=== PATIENT | female | born 1945 | race Caucasian/White ===

== ENCOUNTER → 2016-06-24 | Outpatient (CLI) | payer BC ==
[~2016-06-24] MED LIST: ASPI81TA28 PO; CRANBERRY TAB; CRS/10 PO; FLNIN NAE; FLUOCINONIDE TOP; LIDO5DIS10 TD; LISI40TA PO; MONT1TAB3 PO; NAPR500T3 PO; OXYC-57 PO; PANT1TAB48 PO; SULF-183 PO; SYMIN/8045 INH
--- NOTE | 2016-06-24 13:36 | DIAGNOSTIC IMAGING REPORT ---
LEFT HIP UNILATERAL 2 VIEWS CLINICAL HISTORY: Left hip pain COMPARISON: None. DISCUSSION: The bones are mildly osteopenic. No fractures are visualized. There are no erosive or destructive changes. Vascular calcifications are visualized. The joint space appears well-preserved for age. IMPRESSION: No fractures or subluxations identified. The joint space appears well-preserved for age. Electronically signed by: Sergio Harvey M.D. 06/24/2016 1:34 PM Dictated Date/Time: 06/24/2016 1:33 PM
--- NOTE | 2016-06-24 13:40 | DIAGNOSTIC IMAGING REPORT ---
LUMBAR SPINE 5 VIEWS CLINICAL HISTORY: Chronic low back pain. FINDINGS: 5 views of lumbar spine are obtained. No prior studies are available for comparison at the time of dictation. The skeletal structures are osteopenic. There is no radiographic evidence of fracture or malalignment. Vertebral body height and alignment are maintained throughout the lumbar spine. There is moderate lumbar dextrocurvature centered at L2-L3. Anterior and lateral marginal osteophytes are seen throughout. The transverse and spinous processes appear intact. There is no evidence of spondylolysis. There is advanced degenerative disc space narrowing with associated endplate sclerosis at L2-L3. Moderate disc space narrowing is seen at L1-L2 and L3-L4. Mild facet arthropathy is noted in the lower lumbar region. The bony pelvis appears intact as imaged. Mild sclerotic change is seen in the sacroiliac joints. Advanced atherosclerotic calcification is present in the abdominal aorta. There is a nonobstructed abdominal bowel gas pattern. Calcified phleboliths are observed in the pelvis. IMPRESSION: 1. There is no acute bony abnormality seen involving the lumbosacral spine. 2. Osteopenia with lumbosacral spondylosis and scoliosis as above. Electronically signed by: Anil Aguilar M.D. 06/24/2016 1:39 PM Dictated Date/Time: 06/24/2016 1:36 PM
--- NOTE | 2016-06-24 13:52 | DIAGNOSTIC IMAGING REPORT ---
RIGHT HIP 2 VIEWS CLINICAL HISTORY: Right hip pain. FINDINGS: AP and frog-leg views of the right hip are obtained. No prior studies are available for comparison at the time of dictation. The skeletal structures are osteopenic. No fracture is seen in the right hip or the imaged right hemipelvis. Minimal degenerative joint space narrowing is seen in the right hip. The right sacroiliac joint is normal as visualized. The overlying soft tissues are within normal limits. Calcified gluteal granulomas are noted in the right. Phleboliths are seen in the right hemipelvis. There is atherosclerotic calcification of the right femoral artery. IMPRESSION: Osteopenia with minimal degenerative change as above. No acute bony abnormality is seen in the right hip. Electronically signed by: Anil Aguilar M.D. 06/24/2016 1:50 PM Dictated Date/Time: 06/24/2016 1:49 PM
== END | disposition home or self-care (01) ==
LOC: C.RAD 12:28
PROVIDERS: ATTEND Family Medicine
DX: M54.5 Low back pain (principal); M25.551 Pain in right hip; M25.552 Pain in left hip; M85.89 Other specified disorders of bone density and structure, multiple sites; M47.817 Spondylosis without myelopathy or radiculopathy, lumbosacral region; M41.9 Scoliosis, unspecified

== ENCOUNTER → 2016-11-30 | Outpatient (CLI) | payer BC ==
--- NOTE | 2016-11-30 17:31 | DIAGNOSTIC IMAGING REPORT ---
CHEST 2 VIEWS ROUTINE CLINICAL HISTORY: R05 PNEUMONIA. COMPARISON STUDY: 10/07/2012 FINDINGS: The heart is the upper limits of normal in size. There is a scoliosis. There are right lower lobe airspace opacities consistent with a pneumonia. There is no significant pleural fluid.[ Films subsequent to treatment are recommended in follow-up. IMPRESSION: Right lower lobe airspace opacities consistent with pneumonia. Films subsequent to treatment are recommended in follow-up. Electronically signed by: Sergio Harvey M.D. 11/30/2016 5:30 PM Dictated Date/Time: 11/30/2016 5:28 PM
== END | disposition home or self-care (01) ==
LOC: C.RAD 16:39
PROVIDERS: ATTEND Nurse Practitioner Adult Health
DX: R05 Cough (principal); R91.8 Other nonspecific abnormal finding of lung field

== ENCOUNTER → 2017-01-07 | Outpatient (CLI) | payer BC ==
--- NOTE | 2017-01-07 11:12 | DIAGNOSTIC IMAGING REPORT ---
TWO VIEW CHEST CLINICAL HISTORY: Follow-up pneumonia. FINDINGS: PA and lateral chest radiographs are compared to study dated 11/30/2016. The heart is mildly enlarged and there is atherosclerotic calcification of the thoracic aorta. The pulmonary vasculature is noncongested. Chronic interstitial thickening is similar to previous. There is no airspace consolidation or pleural effusion. There is no pneumothorax. The skeletal structures are osteopenic. Degenerative change and scoliosis are noted in the thoracic spine. IMPRESSION: 1. There is no airspace consolidation or pleural effusion. Right lower lobe consolidation has resolved as compared to 11/30/2016. 2. Mild cardiomegaly without radiographic evidence of congestive failure. Electronically signed by: Anil Aguilar M.D. 01/07/2017 11:10 AM Dictated Date/Time: 01/07/2017 11:06 AM
[2017-01-07 13:22] LABS: ESTIMATED AVERAGE GLUCOSE 137 mg/dl; HA1C FLAG Normal (Normal)
[2017-01-07 14:03] LABS: BLOOD UREA NITROGEN 17 mg/dl (7-18); CALCIUM 10.7 mg/dl (8.5-10.1); CARBON DIOXIDE 28 mmol/L (21-32); CHLORIDE 105 mmol/L (98-107); CREATININE 0.65 mg/dl (0.60-1.20); GLUCOSE 119 mg/dl (70-99); POTASSIUM 3.7 mmol/L (3.5-5.1); SODIUM 142 mmol/L (136-145)
== END | disposition home or self-care (01) ==
LOC: C.RAD 10:47
PROVIDERS: ATTEND Nurse Practitioner Adult Health
DX: I10 Essential (primary) hypertension (principal); R73.9 Hyperglycemia, unspecified; J18.9 Pneumonia, unspecified organism; I51.7 Cardiomegaly

== ENCOUNTER 2023-11-04 09:29 | Inpatient (IN) ==
--- NOTE | 2023-11-04 10:18 | Emergency Department Note ---
History of Present Illness General Chief complaint: Dizziness Stated complaint: DIZZIESS,NAUSEA Time Seen by Provider: 11/04/23 10:00 Source: patient, family ( who is at the bedside), RN notes reviewed and old records reviewed (08/23/23-primary care office visit for primary care issues) Mode of arrival: ambulatory Limitations: no limitations History of Present Illness This patient is a 77-year-old female comes in after feeling intermittently dizzy for the last couple weeks. She says it is better when she sits and rests when she moves her head she feels like she is spinning. She feels when she has a spell she gets numb and tingling in her arms bilaterally. No chest pain. no cough or fever .No headache. she feels nauseous at times .no blood or melena stool. no abdominal pain no urinary symptoms. She does take a baby aspirin but no other blood thinners. No fall or trauma. She also says her left leg has been swollen and tender recently Home Medications Medication Instructions Recorded Confirmed Type albuterol sulfate 90 mcg/actuation 1 inh inhalation Q6H PRN shortness 10/26/22 11/04/23 Rx aerosol inhaler (Ventolin HFA) of breath or wheezing #6.7 grams ondansetron HCl 4 mg tablet 4 mg PO BID PRN nausea and 02/19/23 11/04/23 Rx vomiting #20 tabs lisinopril 40 mg tablet 40 mg PO DAILY #90 tabs 03/04/23 11/04/23 Rx montelukast 10 mg tablet 10 mg PO DAILY #90 tabs 03/04/23 11/04/23 Rx rosuvastatin 20 mg tablet (Crestor) 20 mg PO DAILY #90 tabs 04/05/23 11/04/23 Rx amlodipine 10 mg tablet 10 mg PO DAILY #30 tabs 06/24/23 11/04/23 Rx fluticasone fur. 100 mcg-umeclid 1 inh inhalation Q24H #28 ea 08/23/23 11/04/23 Rx 62.5 mcg-vilant 25 mcg inhalat.powder (Trelegy Ellipta) oxycodone-acetaminophen 5 mg-325 1 - 2 tab PO Q4H PRN pain 25 days 11/03/23 11/04/23 Rx mg tablet #200 tabs alendronate 70 mg tablet 70 mg PO WK 11/04/23 11/04/23 History aspirin 81 mg tablet,delayed 81 mg PO DAILY 11/04/23 11/04/23 History release calcium carbonate 600 mg-vitamin 1 cap PO DAILY 11/04/23 11/04/23 History D3 12.5 mcg (500 unit) capsule (Calcium 600 with Vitamin D3) coenzyme Q10 100 mg capsule 300 mg PO DAILY 11/04/23 11/04/23 History (CoQ-10) diclofenac sodium 1 % topical gel 2 g topical QID PRN Pain 11/04/23 11/04/23 History esomeprazole magnesium 40 mg 40 mg PO DAILY 11/04/23 11/04/23 History capsule,delayed release fluticasone propionate 50 2 spray intranasal DAILY 11/04/23 11/04/23 History mcg/actuation nasal spray,suspension nystatin 100,000 unit/gram topical 1 applic topical BID PRN .Flare ups 11/04/23 11/04/23 History cream Allergies Allergy/AdvReac Type Severity Reaction Status Date / Time benzoin Allergy Severe "ATE A Verified 11/04/23 12:06 HOLE IN MY SKIN" oxycodone [From OxyContin] Allergy Severe vomiting Verified 11/04/23 12:06 povidone-iodine Allergy Intermediate TOPICAL Verified 11/04/23 12:06 BETADINE-LARGE SKIN BLISTERS Iodinated Contrast Media Allergy Unknown IVP DYE Verified 11/04/23 12:06 Sulfa (Sulfonamide Allergy Unknown UNKNOWN Verified 11/04/23 12:06 Antibiotics) RXN, TAKES BACTRIM CHRONICALLY AT HOME lactose AdvReac Intermediate DIARRHEA Verified 11/04/23 12:06 AND 'GASSY' orange AdvReac Mild ORANGE Verified 11/04/23 12:06 JUICE-VOMITS Iodine External Tincture Allergy Unknown Uncoded 11/04/23 12:06 Gpijcbbh-Mnijetablt-Hibsdcnxf Allergy Unknown Uncoded 11/04/23 12:06 Past Med/Surg History Problem List (Updated 11/04/23 @ 16:15 by Cody Bolton MD) Anemia (Acute) CHF (congestive heart failure) (Acute) Microcytic anemia Sinus tachycardia (Acute) Dizziness (Acute) Diabetes Sinus tachycardia On statin therapy Sinus tachycardia by electrocardiogram MCGUIRE (dyspnea on exertion) Allergic rhinitis (Chronic) Anxiety (Chronic) Benign hypertension (Chronic 10/20/12) COPD (chronic obstructive pulmonary disease) (Chronic 10/20/12) Carotid artery stenosis (Chronic) Chronic reflux esophagitis (Chronic) Hyperlipidemia (Chronic 10/20/12) Lumbar degenerative disc disease (Chronic) Osteoporosis (Chronic) Primary osteoarthritis of both hips (Chronic) Pulmonary emphysema (Chronic) Sleep apnea (Chronic) Subclavian artery stenosis (Chronic) Medical History Benign neoplasm of tongue Leukocytosis Surgical History S/P tonsillectomy and adenoidectomy S/P nasal surgery S/P hysterectomy S/P foot surgery S/P ear surgery S/P lumpectomy of breast S/P appendectomy Family History Mother Myocardial infarction Diabetes Hypertension Stroke syndrome Daughter Asthma Father Cancer Denies family history of Ovarian cancer Prostate cancer Breast cancer Colorectal cancer Social History Smoking Status: Never smoker Tobacco Type: Cigarettes Age Started Using Tobacco: 19; Age Quit Using Tobacco: 63; packs per day: 1.5; Second Hand Exposure: No; Do You Dip or Chew Tobacco: No; Hx Alcohol Use: No Hx Substance Use: No Preferred Language: E[place] Communication Ability: Effective Visual Impairment: No Limitations Hearing Ability: Normal 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 marital status: Current Living Situation: Spouse current occupational status: retired How many Children do You have: 1 Feels Safe at Home: Yes Childhood Exposure to Second-Hand Smoke: Yes Diet: regular Diet Comment: regular Dental Care, Regularly: Yes Physical Activity Frequency: Does not Exercise Physical Activity Frequency Comment: grocery shopping Seatbelt Use: always Sunscreen Use: No Assistive Devices: Glasses Review of Systems A total of 10 systems reviewed and were otherwise negative Physical Exam Vital Signs Vital Signs - 24 hr 11/04/23 09:34 11/04/23 10:00 11/04/23 10:26 Temperature 37.0 C Temperature Source Temporal Artery Scan Pulse Rate 124 H 121 H Pulse Rate [Apical] Respiratory Rate 16 Respiratory Effort / Characteristics Non-Labored Spontaneous Respiratory Depth Normal Blood Pressure 168/81 H Blood Pressure [Right Arm] Blood Pressure Mean 110 Blood Pressure Mean [Right Arm] Blood Pressure Position Sitting Pulse Oximetry 95 Oxygen Delivery Method Room Air Room Air Oxygen Flow Rate Sepsis Recent Fever Within 48 Hours No Sepsis New/Unexplained Change in Mental Status N/A Sepsis Action Taken by Nursing No Action Required Oxygen Flow Rate - Titration Pulse Oximetry Post Tiitration 11/04/23 11:38 11/04/23 11:39 11/04/23 13:44 Temperature Temperature Source Pulse Rate 107 H Pulse Rate [Apical] 112 H Respiratory Rate 20 21 Respiratory Effort / Characteristics Non-Labored Spontaneous Respiratory Depth Normal Blood Pressure Blood Pressure [Right Arm] 139/83 Blood Pressure Mean Blood Pressure Mean [Right Arm] 101 Blood Pressure Position Pulse Oximetry 86 L 95 97 Oxygen Delivery Method Room Air Nasal Cannula Room Air Oxygen Flow Rate 2 Sepsis Recent Fever Within 48 Hours Sepsis New/Unexplained Change in Mental Status Sepsis Action Taken by Nursing Oxygen Flow Rate - Titration 2 Pulse Oximetry Post Tiitration 95 General: Well developed well nourished [id number]-[id number] older female who appears in no acute distress, breathing comfortably on room air. Normal speech HEENT: Normal cephalic atraumatic. Pupils are equal round and reactive to light. Extraocular movements are intact. Oropharynx is pink with moist mucous membranes. No swelling of the mouth lips or tongue. Neck: Supple with a midline trachea. No meningeal signs or stiffness, no JVD or bruits. No Stridor. Chest: Clear to auscultation bilaterally. No wheezes or rhonchi. No increased work of breathing. Heart: Tachycardic but regular rate and rhythm without murmurs or gallops. Abdomen: Soft nontender, nondistended without rebound guarding or rigidity. Extremities: No cyanosis clubbing or edema. No calf tenderness or assymetry Spine/Back. Non tender to palpation. No CVA tenderness Skin: Good turgor without rashes. Neurologic exam: Cranial nerves two through 12 are intact. Motor and sensation are intact and symmetrical throughout. Course Administered Medications Discontinued Medications Sodium Chloride (Nss) 500 mls @ 999 mls/hr IV .Q31M ONE Stop: 11/04/23 10:42 Last Infusion: 11/04/23 13:49 Dose: Infused Documented By: Admin: 11/04/23 11:37 Dose: 999 mls/hr Documented By: TITUS Medical Decision Making Differential Diagnosis Vertigo, intracranial process, vascular disease, cardiac disease, PE, electrolyte or metabolic abnormal, DVT, PE Medical Records Attestation: I reviewed the patient's medical records. Home Medications Current Medication List: was personally reviewed by me Laboratory Data Attestation: I reviewed the patient's lab results. 11/04/23 10:00 11/04/23 10:00 Lab Results 11/04/23 11/04/23 11/04/23 Range/Units 10:00 11:11 12:40 WBC 7.28 (4.8-10.8) K/ul RBC 4.77 (4.20-5.40) M/uL Hgb 9.4 L (12.0-16.0) g/dl Hct 33.8 L (37.0-47.0) % MCV 70.9 L (80.0-100.0) fL MCH 19.7 L (25.0-34.0) pg MCHC 27.8 L (32.0-36.0) g/dL RDW Std Deviation 47.8 H (36.4-46.3) fL RDW Coeff of Shanna 19.4 H (11.5-14.5) % Plt Count 227 (130-400) K/uL MPV 8.9 L (9.4-12.4) fL Immature Gran % (Auto) 0.7 % Neut % (Auto) 81.9 % Lymph % (Auto) 11.0 % [place] % (Auto) 5.1 % Eos % (Auto) 0.5 % Baso % (Auto) 0.8 % Neut # (Auto) 5.96 (1.40-6.50) K/uL Lymph # (Auto) 0.80 L (1.20-3.40) K/uL [place] # (Auto) 0.37 (0.11-0.59) K/uL Eos # (Auto) 0.04 (0.00-0.50) K/uL Baso # (Auto) 0.06 (0.00-0.20) K/uL Immature Gran # (Auto) 0.05 (0.01-0.20) K/uL PT 10.8 (9.0-12.0) Seconds INR 1.0 (0.9-1.1) APTT 23 (21-31) Seconds PTT Ratio 0.9 Sodium 140 (136-145) mmol/L Potassium 4.0 (3.5-5.1) mmol/L Chloride 106 (98-107) mmol/L Carbon Dioxide 24 (21-32) mmol/L Anion Gap 10 (3-11) BUN 14 (6-23) mg/dl Creatinine 0.61 (0.6-1.2) mg/dl Est Cr Clr Drug Dosing 65.9 ml/min Est GFR ( Amer) 102.1 ml/min Est GFR (Non-Af Amer) 88.1 ml/min BUN/Creatinine Ratio 23.0 H (10-20) Glucose 152 H (70-99(Fasting)) mg/dl Calcium 9.3 (8.6-10.3) mg/dl Iron 20 L (35-150) mcg/dl TIBC 550 H (250-450) mcg/dl Unsaturated IBC 530 H (155-355) mcg/dl Transferrin % Sat 4 L (15-50) % Ferritin 7.4 L (8-388) ng/ml Total Bilirubin 0.6 (0.2-1.0) mg/dl AST 16 (13-39) U/L ALT 17 (7-52) U/L Alkaline Phosphatase 59 (34-104) U/L Troponin I High Sens 9.1 (0-14) pg/ml B-Natriuretic Peptide 120 H (0-100) pg/ml Total Protein 7.7 (6.0-8.3) gm/dl Albumin 4.3 (3.4-5.0) gm/dl Globulin 3.4 (2.5-4.0) gm/dl Albumin/Globulin Ratio 1.3 (0.9-2) Lipase 6 L (11-82) U/L Vitamin B12 370 (180-914) pg/ml Folate 15.57 (>5.38) ng/ml Urine Color Yellow Urine Appearance Clear (Clear) Urine pH 7.5 (4.5-7.5) Ur Specific [place] 1.012 (1.000-1.030) Urine Protein Negative (Negative) Urine Glucose (UA) Negative (Negative) Urine Ketones Negative (Negative) Urine Blood Negative (Negative) Urine Nitrite Negative (Negative) Urine Bilirubin Negative (Negative) Urine Urobilinogen Negative (Negative) Ur Leukocyte Esterase Negative (Negative) Imaging Data Attestation: I personally reviewed and interpreted this imaging study as follows: My Impression: Chest x-raycardiomegaly. There might may be some mild increased interstitial markings Radiologist's Impression: Chest X-Ray 11/04/23 10:11 XR chest 1V portable CLINICAL HISTORY: Chest pain, nonspecific TECHNIQUE: Single frontal radiograph of the chest was obtained. Comparison: Comparison is made to chest radiograph 08/23/2023 FINDINGS: No lines and tubes are seen. Cardiomegaly is noted. The aortic arch is calcified. Prominence and cephalization of the vasculature is seen. No evidence of pleural effusion or pneumothorax. IMPRESSION: Cardiomegaly and mild pulmonary edema. ACT 112: Negative or not required by law. Electronically signed by: Dylan Rowell M.D. 11/04/2023 11:[address] 11/04/23 10:11 CT SCAN OF THE BRAIN WITHOUT IV CONTRAST CLINICAL HISTORY: Dizziness. COMPARISON STUDY: CT of the brain dated 03/25/2012. TECHNIQUE: Unenhanced axial CT scan of the brain is performed from the vertex to the skull base. A dose lowering technique was utilized adhering to the principles of ALARA. CT DOSE: 549.13 mGy.cm FINDINGS: Brain parenchyma: There is age-related involutional change noting [id number]-[id number] subcortical and periventricular microangiopathic disease. There is no hemorrhage, mass effect, or evidence of acute territorial ischemia by CT criteria. Cloud-white matter differentiation is preserved. No extra-axial fluid collection is seen. Ventricles, sulci, cisterns: Prominent secondary to involutional change. Intracranial vasculature: There is atherosclerotic calcification of the cavernous carotid artery. Calvarium: Unremarkable. Sinuses and mastoids: The paranasal sinuses are clear. The mastoid air cells are well pneumatized. Orbits: The bony orbits are grossly intact. IMPRESSION: There is no hemorrhage, mass effect, or evidence of acute territorial ischemia by CT criteria. ACT 112: Negative or not required by law. Electronically signed by: Anil Aguilar M.D. 11/04/2023 10:45 AM Venous Doppler Study 11/04/23 10:11 US venous doppler LE LT CLINICAL HISTORY: eval for dvt TECHNIQUE: Left lower extremity real-time compression venous ultrasound with Color Doppler imaging. Utilizing real-time ultrasonic imaging multiple real time high-resolution ultrasonic images with compression and noncompression maneuvers of the deep venous system in addition to color doppler imaging were performed from the common femoral vein through the proximal calf veins. COMPARISON: None available at the time of this dictation. FINDINGS/IMPRESSION: Currently there is normal compressibility of the deep venous system from the common femoral vein through the proximal calf veins. Exam is limited by patient intolerance of compression. ACT 112: Negative or not required by law. Electronically signed by: Dylan Rowell M.D. 11/04/2023 12:52 PM ECG Data Attestation: I personally reviewed and interpreted this ECG as follows: Indication: + weakness Rate (beats per minute): 116 Rhythm: + sinus tachycardia ECG Intervals/blocks: + Normal QRS and + Normal QT ECG [place]: + Normal ECG ST segments: + Nonspecific ST abnormalities ECG Findings: no PACs or no PVCs Comparison ECG Date: from (10/20/2022) MDM Narrative This patient comes in described above she does feel intermittently dizzy. She is stable vital signs are normal neurologic exam she is noted to be in sinus tachycardia which she is tends to have. She has no chest pain. She also complains her left leg hurts. I did order ultrasound of the leg. She was placed on a industrial maintenance repairer room B5 she is hydrated gently with a 500 cc normal saline bolus. Multiple blood testing was obtained also did a CAT scan of her head. CAT scan of the head was unremarkable. She is mildly hypoxemic at times although not symptomatic with this she was placed on oxygen. She does have sinus tachycardia looking through the chart she tends to have this. Her hemoglobin was significantly low compared to baseline in the 9 range. I did a rectal exam was negative and she has no history to suggest GI bleed. She has no fever or white count to suggest infection she is no significant electrolyte or metabolic abnormality. CAT scan of her head was unremarkable she may have a congestive heart failure component here so the fluids were stopped after she received about 200 cc of the 500 cc ordered. She seems to tolerate that well. I do think she needs to be admitted/observed for evaluated for a cardiac evaluation and evaluation of her anemia as well. I discussed the case at length with Dr. Teran whosaw the patient ER for these measures. The patient and agree with the plan. Continuous cardiac monitoring: Orders placed in EMR for continuous industrial maintenance repairer: Upon my evaluation patient to be in sinus tachycardia with rate 110 CAT scan of her head Impression & Plan Dizziness, Sinus tachycardia, CHF (congestive heart failure), Anemia Discharge Plan Visit Data Chief Complaint: Dizziness Stated Complaint: DIZZIESS,NAUSEA ED Provider: Cody Bolton Discharge Problem: Dizziness, Sinus tachycardia, CHF (congestive heart failure), Anemia Discharge Problem: CHF (congestive heart failure) Qualifiers: Heart failure type: unspecified Heart failure chronicity: unspecified Qualified Code(s): I50.9 - Heart failure, unspecified Anemia Qualifiers: Anemia type: unspecified type Qualified Code(s): D64.9 - Anemia, unspecified
[2023-11-04 10:30] LABS: Basophils # (auto) 0.06 K/uL (0.00-0.20); Basophils % (auto) 0.8 %; Eosinophils # (auto) 0.04 K/uL (0.00-0.50); Eosinophils % (auto) 0.5 %; Hematocrit (blood only) 33.8 % (37.0-47.0); Hemoglobin 9.4 g/dl (12.0-16.0); Immature Granulocytes # (auto) 0.05 K/uL (0.01-0.20); Immature Granulocytes % (auto) 0.7 %; Mean Corpuscular Hemoglobin 19.7 pg (25.0-34.0); Mean Corpuscular Hgb Conc 27.8 g/dL (32.0-36.0); Mean Corpuscular Volume 70.9 fL (80.0-100.0); Mean Platelet Volume 8.9 fL (9.4-12.4); Monocytes # (auto) 0.37 K/uL (0.11-0.59); Monocytes % (auto) 5.1 %; Neutrophils # (auto) 5.96 K/uL (1.40-6.50); Neutrophils % (auto) 81.9 %; Platelet Count 227 K/uL (130-400); RDW Coefficient of Variation 19.4 % (11.5-14.5); RDW Standard Deviation 47.8 fL (36.4-46.3); Red Blood Count 4.77 M/uL (4.20-5.40); White Blood Count 7.28 K/ul (4.8-10.8)
--- NOTE | 2023-11-04 10:47 | CT Scan Report ---
CT SCAN OF THE BRAIN WITHOUT IV CONTRAST CLINICAL HISTORY: Dizziness. COMPARISON STUDY: CT of the brain dated 03/25/2012. TECHNIQUE: Unenhanced axial CT scan of the brain is performed from the vertex to the skull base. A do se lowering technique was utilized adhering to the principles of ALARA. CT DOSE: 549.13 mGy.cm FINDINGS: Brain parenchyma: There is age-related involutional change noting [id number] subcortical and pe riventricular microangiopathic disease. There is no hemorrhage, mass effect, or evidence of acute ter ritorial ischemia by CT criteria. Cloud-white matter differentiation is preserved. No extra-axial flui d collection is seen. Ventricles, sulci, cisterns: Prominent secondary to involutional change. Intracranial vasculature: There is atherosclerotic calcification of the cavernous carotid artery. Calvarium: Unremarkable. Sinuses and mastoids: The paranasal sinuses are clear. The mastoid air cells are well pneumatized. Orbits: The bony orbits are grossly intact. IMPRESSION: There is no hemorrhage, mass effect, or evidence of acute territorial ischemia by CT zarina smart. ACT 112: Negative or not required by law. Electronically signed by: Anil Aguilar M.D. 11/04/2023 10:45 AM
[2023-11-04 10:52] LABS: Albumin Globulin Ratio 1.3 (0.9-2); Albumin Level 4.3 gm/dl (3.4-5.0); Bilirubin,Total 0.6 mg/dl (0.2-1.0); Calcium 9.3 mg/dl (8.6-10.3); Creatinine Clr Calc Pharmacy 65.9 ml/min; Est GFR (African American) 102.1 ml/min; Est GFR (Non-African American) 88.1 ml/min; Globulin 3.4 gm/dl (2.5-4.0); Total Protein 7.7 gm/dl (6.0-8.3)
[2023-11-04 10:56] LABS: Partial Thromboplastin Ratio 0.9; Partial Thromboplastin Time 23 Seconds (21-31); Prothrombin Time 10.8 Seconds (9.0-12.0)
[2023-11-04 10:58] LABS: Troponin I High Sensitivity 9.1 pg/ml (0-14)
--- NOTE | 2023-11-04 11:27 | XRay Report ---
XR chest 1V portable CLINICAL HISTORY: Chest pain, nonspecific TECHNIQUE: Single frontal radiograph of the chest was obtained. Comparison: Comparison is made to chest radiograph 08/23/2023 FINDINGS: No lines and tubes are seen. Cardiomegaly is noted. The aortic arch is calcified. Prominence and ceph alization of the vasculature is seen. No evidence of pleural effusion or pneumothorax. IMPRESSION: Cardiomegaly and mild pulmonary edema. ACT 112: Negative or not required by law. Electronically signed by: Dylan Rowell M.D. 11/04/2023 11:25 AM
[2023-11-04] MEDS: SODIUM CHLORIDE 0.9% 500 ML IV ONE (11:37)
[2023-11-04 12:30] LABS: Appearance Urine Clear (Clear); Bilirubin Urine Negative (Negative); Blood Urine Negative (Negative); Color Urine Yellow; Glucose Urine UA Negative (Negative); Ketones Urine Negative (Negative); Leukocyte Esterase Urine Negative (Negative); Nitrite Urine Negative (Negative); Protein Urine Negative (Negative); Specific Gravity Urine 1.012 (1.000-1.030); Urobilinogen Urine Negative (Negative); pH Urine 7.5 (4.5-7.5)
--- NOTE | 2023-11-04 12:53 | Ultrasound Report ---
US venous doppler LE LT CLINICAL HISTORY: eval for dvt TECHNIQUE: Left lower extremity real-time compression venous ultrasound with Color Doppler imaging. U tilizing real-time ultrasonic imaging multiple real time high-resolution ultrasonic images with compr ession and noncompression maneuvers of the deep venous system in addition to color doppler imaging we re performed from the common femoral vein through the proximal calf veins. COMPARISON: None available at the time of this dictation. FINDINGS/IMPRESSION: Currently there is normal compressibility of the deep venous system from the common femoral vein thro ugh the proximal calf veins. Exam is limited by patient intolerance of compression. ACT 112: Negative or not required by law. Electronically signed by: Dylan Rowell M.D. 11/04/2023 12:52 PM
--- NOTE | 2023-11-04 13:21 | History & Physical Report ---
Date of Service November 04, 2023 Assessment & Plan (1) Dizziness: Plan: Orthostasis, presyncope Lightheadedness and presyncope when standing. She does not have any spinning quality/vertigo with this and has no history of vertigo This is associate with some shortness of breath. She does not have prior history of heart failure but does show some pulmonary edema and BNP is newly elevated at 120 No chest pain, chest pressure, palpitations This may be due to mild fluid overload and anemia; however her presyncopal symptoms with relatively acute onset with leg swelling, leg injury, and tachycardia now on an oxygen requirement with presyncope are high risk for PE. She also has a fx of multiple DVT/PE in her daughter. Unfortunately patient has a history of severe topical rxn to topical iodine/Betadine with severe skin and a history of IV contrast allergy. She reports she does not know if she has received IV contrast before or if this was just added because of her topical allergy. Given severity of her topical reaction did discuss risk and pretreatment with allergy. As she is tachycardic, hypoxic, presyncopal and has an elevated BNP all suspicious for PE and anticoagulation is increased risk with her anemia is important to rule out PE at this time. Agree with pretreatment with methylprednisolone/Benadryl 1 hour before and will progress to CTA for PE evaluation. Patient updated, aware/benefits of this plan, and in agreement echo pending. (2) Microcytic anemia: Plan: Suspect iron deficiency anemia No history of GI bleeding patient completes home cards but has never had a colonoscopy Iron studies, B12, folate are pending No epigastric pain, melena, or BUN elevation to suggest upper GI bleeding If iron deficient will replete, and will need a follow-up colonoscopy (3) Sinus tachycardia: Plan: At baseline longstanding history of this however she has not been hypoxic in the past (4) Sleep apnea: Plan: CPAP at bedtime (5) COPD (chronic obstructive pulmonary disease): Plan: No wheezing on admission. No acute exacerbation. Continue inhalers Plan DVT prophylaxis: SCDs due to anemia Disposition: PCU CODE STATUS: Full code Diet: HH History of Present Illness Primary Care Provider: Susana Herron MD Brynn is a 77yo F who presents with dizziness when she turns her head had some lightheadedness without syncope. She has not had any hematochezia/melena/hemoptysis; however hemoglobin is 9.4. Last hemoglobin for comparison was 2 years ago which was normal at the time. At that time she was normocytic, she is now severely microcytic with an MCV of 70.9. She also follows with cardiology for dyspnea on exertion. She was recommended to have a stress test, however she had not been having chest pain so this was not thought to be emergent at the time and was pending follow-up. She was noted to have possible inferior Q waves at time of last visit. Her echo did not show wall motion abnormalities. She does have a history of sinus tachycardia, this was evaluated with a Holter monitor and did not appear to need treatment 03/2023. Creatinine and BUN are normal. Do not suspect upper GI bleed. Patient does show mild pulmonary edema on chest x-ray which is new, and is on 2 L of oxygen which is also new. BNP is pending. Mike is seen at the bedside. She reports she has been dyspneic for around 2 days. She has noticed left leg swelling which is atypical but does have pins/hardware in that leg from a prior injury. She notes she is always tachycardic and her heart rate has been around where it normally is. She has been very short of breath on attempted exertion however which is new. She has had lightheadedness and dizziness when standing which resolves with sitting and rest. The room does not spin during these episodes. She has not had any history of vertigo in the past. She has not passed out or hit her head. She does not have any chest pain or chest pressure. No abdominal pain. No hematochezia, melena, hematemesis. She does note she has an allergy to topical iodine/Betadine which caused large blisters. She is not sure if she has an allergy to contrast dye, noted that this was in her chart and patient acknowledges but does not know what the reaction was. She also prefers to avoid steroids if at all possible as she is "sensitive to these ". She denies inspiratory/pleuritic pain. He has noticed a little bit or orthopnea which is new. Denies history of heart attacks/NC. Denies wheezing. Medical History: Reviewed Medications: Reviewed Surgical History: Reviewed Family history: Reviewed Allergies: Reviewed Social History: Reviewed Code Status: Full Allergies Allergy/AdvReac Type Severity Reaction Status Date / Time benzoin Allergy Severe "ATE A Verified 11/04/23 12:06 HOLE IN MY SKIN" oxycodone [From OxyContin] Allergy Severe vomiting Verified 11/04/23 12:06 povidone-iodine Allergy Intermediate TOPICAL Verified 11/04/23 12:06 BETADINE-LARGE SKIN BLISTERS Iodinated Contrast Media Allergy Unknown IVP DYE Verified 11/04/23 12:06 Sulfa (Sulfonamide Allergy Unknown UNKNOWN Verified 11/04/23 12:06 Antibiotics) RXN, TAKES BACTRIM CHRONICALLY AT HOME lactose AdvReac Intermediate DIARRHEA Verified 11/04/23 12:06 AND 'GASSY' orange AdvReac Mild ORANGE Verified 11/04/23 12:06 JUICE-VOMITS Iodine External Tincture Allergy Unknown Uncoded 11/04/23 12:06 Hoyrpedl-Rhczjrwghq-Vrzusymzi Allergy Unknown Uncoded 11/04/23 12:06 Home Medications Medication Instructions Recorded Confirmed Type albuterol sulfate 90 mcg/actuation 1 inh inhalation Q6H PRN shortness 10/26/22 11/04/23 Rx aerosol inhaler (Ventolin HFA) of breath or wheezing #6.7 grams ondansetron HCl 4 mg tablet 4 mg PO BID PRN nausea and 02/19/23 11/04/23 Rx vomiting #20 tabs lisinopril 40 mg tablet 40 mg PO DAILY #90 tabs 03/04/23 11/04/23 Rx montelukast 10 mg tablet 10 mg PO DAILY #90 tabs 03/04/23 11/04/23 Rx rosuvastatin 20 mg tablet (Crestor) 20 mg PO DAILY #90 tabs 04/05/23 11/04/23 Rx amlodipine 10 mg tablet 10 mg PO DAILY #30 tabs 06/24/23 11/04/23 Rx fluticasone fur. 100 mcg-umeclid 1 inh inhalation Q24H #28 ea 08/23/23 11/04/23 Rx 62.5 mcg-vilant 25 mcg inhalat.powder (Trelegy Ellipta) oxycodone-acetaminophen 5 mg-325 1 - 2 tab PO Q4H PRN pain 25 days 11/03/23 11/04/23 Rx mg tablet #200 tabs alendronate 70 mg tablet 70 mg PO WK 11/04/23 11/04/23 History aspirin 81 mg tablet,delayed 81 mg PO DAILY 11/04/23 11/04/23 History release calcium carbonate 600 mg-vitamin 1 cap PO DAILY 11/04/23 11/04/23 History D3 12.5 mcg (500 unit) capsule (Calcium 600 with Vitamin D3) coenzyme Q10 100 mg capsule 300 mg PO DAILY 11/04/23 11/04/23 History (CoQ-10) diclofenac sodium 1 % topical gel 2 g topical QID PRN Pain 11/04/23 11/04/23 History esomeprazole magnesium 40 mg 40 mg PO DAILY 11/04/23 11/04/23 History capsule,delayed release fluticasone propionate 50 2 spray intranasal DAILY 11/04/23 11/04/23 History mcg/actuation nasal spray,suspension nystatin 100,000 unit/gram topical 1 applic topical BID PRN .Flare ups 11/04/23 11/04/23 History cream Past Med/Surg History Problem List (Updated 11/04/23 @ 13:19 by Adam Rebollar MD) Microcytic anemia Sinus tachycardia (Acute) Dizziness (Acute) Diabetes Sinus tachycardia On statin therapy Sinus tachycardia by electrocardiogram MCGUIRE (dyspnea on exertion) Allergic rhinitis (Chronic) Anxiety (Chronic) Benign hypertension (Chronic 10/20/12) COPD (chronic obstructive pulmonary disease) (Chronic 10/20/12) Carotid artery stenosis (Chronic) Chronic reflux esophagitis (Chronic) Hyperlipidemia (Chronic 10/20/12) Lumbar degenerative disc disease (Chronic) Osteoporosis (Chronic) Primary osteoarthritis of both hips (Chronic) Pulmonary emphysema (Chronic) Sleep apnea (Chronic) Subclavian artery stenosis (Chronic) Medical History Benign neoplasm of tongue Leukocytosis Surgical History S/P tonsillectomy and adenoidectomy S/P nasal surgery S/P hysterectomy S/P foot surgery S/P ear surgery S/P lumpectomy of breast S/P appendectomy Family History Mother Myocardial infarction Diabetes Hypertension Stroke syndrome Daughter Asthma Father Cancer Denies family history of Ovarian cancer Prostate cancer Breast cancer Colorectal cancer Social History Smoking Status: Never smoker Tobacco Type: Cigarettes Age Started Using Tobacco: 19; Age Quit Using Tobacco: 63; packs per day: 1.5; Second Hand Exposure: No; Do You Dip or Chew Tobacco: No; Hx Alcohol Use: No Hx Substance Use: No Preferred Language: [place]an Communication Ability: Effective Visual Impairment: No Limitations Hearing Ability: Normal Photograph Printer Required: No marital status: Current Living Situation: Spouse current occupational status: retired How many Children do You have: 1 Feels Safe at Home: Yes Childhood Exposure to Second-Hand Smoke: Yes Diet: regular Diet Comment: regular Dental Care, Regularly: Yes Physical Activity Frequency: Does not Exercise Physical Activity Frequency Comment: grocery shopping Seatbelt Use: always Sunscreen Use: No Assistive Devices: Glasses Physical Exam Physical Exam: General: A&Ox3. NAD. Cooperative. HEENT: Atraumatic, normocephalic. Vision/hearing are intact Pulm: CTAB A&P. -wheezes, -rales, -rhonchi. Symmetrical chest rise. No increased work of breathing. No respiratory distress. Cardiac: regular, tachycardic, -mrg. Radial pulses intact and symmetrical. Abdominal: Nontender, nondistended, soft. BS present. Extremities: Left lower extremity with 1+ pitting edema, new. No calf tenderness Results & Data Results & Data Vital Signs (Past 12 Hours) Vital Signs Temp Pulse Resp BP Pulse Ox O2 Del Method O2 Flow Rate 11/04/23 11:39 107 H 20 95 Nasal Cannula 2 11/04/23 11:38 86 L Room Air 11/04/23 10:26 Room Air 11/04/23 10:00 121 H 11/04/23 09:34 37.0 C 124 H 16 168/81 H 95 Room Air PG Care Time/CCT Total # of Minutes Spent Total Time Spent with Patient: Total time spent is greater than 50% in coordination of care (as documented) at patient's floor/unit and/or counseling patient: Coding Level of Care Code 47411 INT INP/OBS CARE 3/75MIN Diagnoses Dizziness R42 Microcytic anemia D50.9 Sinus tachycardia R00.0 Sleep apnea G47.30 COPD (chronic obstructive pulmonary disease) J44.9
[2023-11-04 14:39] LABS: Ferritin 7.4 ng/ml (8-388)
[2023-11-04 14:44] LABS: Folate (Folic Acid),Ser orPlas 15.57 ng/ml (>5.38)
[2023-11-04 15:26] LABS: D Dimer 2880 ug/L FEU (0-500)
--- NOTE | 2023-11-04 15:34 | Electrocardiogram Report ---
Test Reason : Blood Pressure : / mmHG Vent. Rate : 116 BPM Atrial Rate : 116 BPM P-R Int : 162 ms QRS Dur : 072 ms QT Int : 338 ms P-R-T Axes : 044 006 029 degrees QTc Int : 469 ms Sinus tachycardia N[address] abnormality Abnormal ECG When compared with ECG of 20-OCT-2012 11:56, No significant change was found Confirmed by Harvinder Phillips ([id number]) on 11/04/2023 3:34:08 PM Referred By: Confirmed By:Harvinder Phillips
[2023-11-04] MEDS ORDERED: methylPREDNISolone 125 MG/2 ML VIAL IV STA (15:46)
[2023-11-04] MEDS ORDERED: diphenhydrAMINE 50 MG/ML VIAL IV STA (15:46)
[2023-11-04] MEDS: oxyCODONE HCL IR 5 MG TAB (IMMEDIATE RELEASE) PO STA (16:59)
[2023-11-04] MEDS ORDERED: ALBUTEROL HFA 8 GM INHALER INH PRN (17:24)
[2023-11-04] MEDS ORDERED: NON-FORMULARY MEDICATION (Fluticasone-Umeclidin-Vilanter [Trelegy Ellipta] 100-62.5-25 mcg INH SCH (17:24)
[2023-11-04] MEDS ORDERED: oxyCODONE/ACETAMINOPHEN 5mg/325mg TAB PO PRN (17:24)
[2023-11-04] MEDS ORDERED: ONDANSETRON 4 MG OD TAB PO PRN (17:45)
[2023-11-04] MEDS: diphenhydrAMINE 50 MG/ML VIAL IV STA (18:24)
[2023-11-04] MEDS: methylPREDNISolone 125 MG/2 ML VIAL IV STA (18:24)
[2023-11-04] MEDS: oxyCODONE/ACETAMINOPHEN 5mg/325mg TAB PO PRN (18:31)
[2023-11-04 19:54] LABS: Hematocrit (blood only) 33.3 % (37.0-47.0); Hemoglobin 9.3 g/dl (12.0-16.0)
[2023-11-04] MEDS: OPTIRAY 320 125ml IV ONE (20:35)
[2023-11-04] MEDS: UMECLIDINIUM/VILANTEROL 62.5/25MCG 7 PUFFS/INHALER INH SCH (21:33)
[2023-11-04] MEDS: FLUTICASONE FUROATE 100MCG 14 PUFFS/INHALER INH SCH (21:33)
--- NOTE | 2023-11-04 21:35 | CT Scan Report ---
Exam(s): CTA CHEST IV Amt: 75 ml opti 320 EXAM: CT Angiography Chest With Intravenous Contrast CLINICAL HISTORY: Reason for exam: PE. TECHNIQUE: Axial computed tomographic angiography images of the chest with intravenous contrast. CTDI is 27.56 mGy and DLP is 817.23 mGy-cm. Automated exposure control was utilized for the study. A dose lowering technique was utilized adhering to the principles of ALARA. MIP reconstructed images were created and reviewed. COMPARISON: No relevant prior studies available. FINDINGS: Pulmonary arteries: Unremarkable. No acute pulmonary embolism. Aorta: Atherosclerotic changes of the aorta. No thoracic aortic aneurysm. Lungs: Moderate centrilobular emphysema. Atelectasis at the lung bases. No mass. Pleural space: Unremarkable. No significant effusion. No pneumothorax. Heart: Small pericardial effusion. No cardiomegaly. No evidence of RV dysfunction. Mediastinum: Small hiatal hernia. Bones/joints: Degenerative changes of the spine. No acute fracture. No dislocation. Soft tissues: Unremarkable. Lymph nodes: Unremarkable. No enlarged lymph nodes. IMPRESSION: 1. No acute pulmonary embolism. 2. Small pericardial effusion. 3. Moderate centrilobular emphysema. Electronically signed by: Vishnu Scott MD 11/04/23 21:34 PM
[2023-11-05 04:13] LABS: Basophils # (auto) 0.01 K/uL (0.00-0.20); Basophils % (auto) 0.3 %; Hematocrit (blood only) 31.2 % (37.0-47.0); Hemoglobin 8.7 g/dl (12.0-16.0); Immature Granulocytes # (auto) 0.03 K/uL (0.01-0.20); Immature Granulocytes % (auto) 0.8 %; Lymphocytes # (auto) 0.44 K/uL (1.20-3.40); Lymphocytes % (auto) 11.4 %; Mean Corpuscular Hemoglobin 19.8 pg (25.0-34.0); Mean Corpuscular Hgb Conc 27.9 g/dL (32.0-36.0); Mean Corpuscular Volume 70.9 fL (80.0-100.0); Mean Platelet Volume 9.8 fL (9.4-12.4); Monocytes # (auto) 0.04 K/uL (0.11-0.59); Neutrophils # (auto) 3.33 K/uL (1.40-6.50); Neutrophils % (auto) 86.5 %; Platelet Count 228 K/uL (130-400); RDW Coefficient of Variation 19.5 % (11.5-14.5); RDW Standard Deviation 48.6 fL (36.4-46.3); White Blood Count 3.85 K/ul (4.8-10.8)
[2023-11-05 04:57] LABS: BUN Creatinine Ratio 17.5 (10-20); Calcium 8.9 mg/dl (8.6-10.3); Creatinine Clr Calc Pharmacy 48.1 ml/min; Est GFR (Non-African American) 71.6 ml/min; Potassium 4.4 mmol/L (3.5-5.1)
[2023-11-05] MEDS ORDERED: GLUCOSE 40% GEL 15 GM TUBE PO PRN (05:05)
[2023-11-05] MEDS ORDERED: GLUCOSE 10 TAB/TUBE PO PRN (05:05)
[2023-11-05] MEDS ORDERED: GLUCAGON FOR INJ 1 MG VIAL SQ PRN (05:05)
[2023-11-05] MEDS ORDERED: DEXTROSE 50% 50 ML SYRINGE IV PRN (05:05)
[2023-11-05] MEDS ORDERED: CARBOHYDRATES FOR HYPOGLYCEMIA PO PRN (05:05)
[2023-11-05] MEDS: INSULIN ASPART PER UNIT CHARGE SC STA (05:29)
[2023-11-05] MEDS: INSULIN ASPART PER UNIT CHARGE SC SCH (08:13)
[2023-11-05] MEDS: amLODIPine BESYLATE 5 MG TAB PO SCH (08:15)
[2023-11-05] MEDS: lisinopril 40 MG TAB PO SCH (08:15)
[2023-11-05] MEDS: ASPIRIN 81 MG ECTAB PO SCH (08:16)
[2023-11-05] MEDS: MONTELUKAST SODIUM 10 MG TABLET PO SCH (08:16)
[2023-11-05] MEDS: PANTOprazole 40 MG TAB PO SCH (08:41)
[2023-11-05] MEDS ORDERED: ROSUVASTATIN CALCIUM 20 MG TAB PO SCH (09:00)
[2023-11-05] MEDS ORDERED: NON-FORMULARY MEDICATION (Coenzyme Q10 [Coq-10] 100 mg Capsule) PO SCH (09:00)
[2023-11-05] MEDS ORDERED: Nursing to Pharmacy Communication SCH (09:00)
[2023-11-05] MEDS: diphenhydrAMINE 50 MG/ML VIAL IV PRN (09:33)
--- NOTE | 2023-11-05 10:17 | Hospitalist Progress Note ---
Date of Service November 05, 2023 Assessment & Plan (1) Dizziness: Plan: Etiology is uncertain EKG shows sinus tachycardia, which she has a history of, 2 d ECHO is pending Reports bilateral upper extremity tingling and numbness as well Ct head did not show any acute pathology Will obtain MRI brain (2) Numbness and tingling in both hands: Plan: In addition to the dizziness, she complains of numbness and tingling in both upper extremity Also reported an episode of tinnitus will obtain MRI brain (3) Microcytic anemia: Plan: Suspect iron deficiency anemia No history of GI bleeding patient completes home cards but has never had a colonoscopy Iron studies, B12, folate are pending No epigastric pain, melena, or BUN elevation to suggest upper GI bleeding If iron deficient will replete, and will need a follow-up colonoscopy (4) Sinus tachycardia: Plan: At baseline longstanding history of this however she has not been hypoxic in the past (5) Sleep apnea: Plan: CPAP at bedtime (6) COPD (chronic obstructive pulmonary disease): Plan: No wheezing on admission. No acute exacerbation. Continue inhalers Plan DVT prophylaxis: SCDs due to anemia Disposition: PCU CODE STATUS: Full code Diet: HH Admission and Anticipated Discharge Date Admission Date: November 04, 2023 Subjective patient seen and examined, complained of tingling and numbness Review of Systems Review of Systems: All systems reviewed are negative, apart from the ones contained in the history. Physical Exam Physical Exam: The patient is awake, alert and oriented 3, well developed and well nourished, normocephalic and atraumatic, lying in bed and in no acute distress. HEENT--PERRL, EOMI, mucous membranes and oropharynx mildly dry Neck--supple. No JVD. No bruits. Thyroid normal, trachea midline, no adenopathy. Heart--normal S1 and S2. No murmurs, rubs or gallops. Lungs--clear bilaterally, no respiratory distress, no accessory muscle use. Abdomen--normal bowel sounds and soft. Extremities--no cyanosis or clubbing. No edema. Dermatologic--normal skin turgor, normal color, no abnormal lymph nodes, no rash. Neurologic--cranial nerves II through XII grossly intact. Rheumatologic--normal range of motion. Psychiatric--normal affect. Results & Data Results & Data Vital Signs (Past 12 Hours) Vital Signs Temp Pulse Pulse Resp BP Pulse Ox O2 Del Method 11/05/23 07:18 89 11/05/23 07:14 97.5 F L 84 20 148/61 H 96 Nasal Cannula 11/05/23 03:20 97.7 F 82 18 130/70 95 Room Air 11/04/23 22:50 97.7 F 86 18 122/52 L 94 Nasal Cannula O2 Flow Rate 11/05/23 07:18 11/05/23 07:14 2 11/05/23 03:20 11/04/23 22:50 2.0 PG Care Time/CCT Total # of Minutes Spent Total Time Spent with Patient: Total time spent is greater than 50% in coordination of care (as documented) at patient's floor/unit and/or counseling patient: Coding Level of Care Code 21222 SUB INP/OBS CARE 2/35MIN Diagnoses Dizziness R42 Numbness and tingling in both hands R20.0; R20.2 Microcytic anemia D50.9 Sinus tachycardia R00.0 Sleep apnea G47.30 COPD (chronic obstructive pulmonary disease) J44.9 Time Spent (min) 35
--- NOTE | 2023-11-05 10:49 | Magnetic Resonance Report ---
MRI OF THE BRAIN WITHOUT IV CONTRAST CLINICAL HISTORY: Dizziness COMPARISON STUDY: CT of the brain dated 11/04/2023. TECHNIQUE: MRI of the brain was performed utilizing various T1 and T2-weighted sequences in the axial , sagittal, and coronal planes. IV contrast was not administered for this examination. The examinatio n is degraded by motion artifact. FINDINGS: Brain parenchyma: There is age-related involutional change noting moderate confluent subcortical and periventricular microangiopathic disease. There is no hemorrhage or mass effect. There is no restrict ed diffusion to suggest acute ischemia. Cloud-white matter differentiation is preserved. No extra-axia l fluid collection is seen. The cerebellar tonsils are normal in configuration. Ventricles, sulci, and cisterns: Prominent secondary to involutional change. Pituitary and sella: Unremarkable. Intracranial vasculature: Normal flow voids are maintained at the skull base. Orbits: The bony orbits are grossly intact. Orbital contents are normal in appearance. Sinuses and mastoids: Clear. Calvarium: Unremarkable. Cervical cord: Partially visualized cervical spinal cord is normal in morphology and signal intensity . IMPRESSION: No acute intracranial abnormality. ACT 112: Negative or not required by law. Electronically signed by: Anil Aguilar M.D. 11/05/2023 10:48 AM
--- NOTE | 2023-11-05 11:06 | XCELERA ---
[id number]
[2023-11-05] MEDS: diphenhydrAMINE 50 MG/ML VIAL IV ONE (11:35)
[2023-11-05] MEDS: IRON SUCROSE 300 MG in SODIUM CHLORIDE 0.9% 250 ML IV SCH (17:07)
[2023-11-05] MEDS: ROSUVASTATIN CALCIUM 20 MG TAB PO SCH (21:00)
[2023-11-06 06:56] LABS: Basophils # (auto) 0.04 K/uL (0.00-0.20); Basophils % (auto) 0.3 %; Eosinophils # (auto) 0.01 K/uL (0.00-0.50); Eosinophils % (auto) 0.1 %; Hematocrit (blood only) 33.9 % (37.0-47.0); Hemoglobin 9.4 g/dl (12.0-16.0); Immature Granulocytes # (auto) 0.07 K/uL (0.01-0.20); Immature Granulocytes % (auto) 0.5 %; Lymphocytes # (auto) 1.23 K/uL (1.20-3.40); Lymphocytes % (auto) 8.6 %; Mean Corpuscular Hemoglobin 19.6 pg (25.0-34.0); Mean Corpuscular Hgb Conc 27.7 g/dL (32.0-36.0); Mean Corpuscular Volume 70.6 fL (80.0-100.0); Mean Platelet Volume 9.6 fL (9.4-12.4); Monocytes # (auto) 0.66 K/uL (0.11-0.59); Monocytes % (auto) 4.6 %; Neutrophils # (auto) 12.21 K/uL (1.40-6.50); Neutrophils % (auto) 85.9 %; Platelet Count 249 K/uL (130-400); RDW Coefficient of Variation 19.6 % (11.5-14.5); RDW Standard Deviation 47.9 fL (36.4-46.3); White Blood Count 14.22 K/ul (4.8-10.8)
[2023-11-06 07:24] LABS: BUN Creatinine Ratio 36.5 (10-20); Calcium 9.7 mg/dl (8.6-10.3); Creatinine Clr Calc Pharmacy 63.7 ml/min; Est GFR (Non-African American) 87.1 ml/min; Potassium 4.1 mmol/L (3.5-5.1)
--- NOTE | 2023-11-06 15:45 | Hospitalist Progress Note ---
Date of Service November 06, 2023 Assessment & Plan (1) Dizziness: Plan: Etiology is uncertain EKG shows sinus tachycardia, which she has a history of, 2D echo was unremarkable Ct head did not show any acute pathology MRI negative Orthostatic vital signs negative Awaiting PT/OT (2) Numbness and tingling in both hands: Plan: In addition to the dizziness, she complains of numbness and tingling in both up per extremity Also reported an episode of tinnitus MRI negative (3) Microcytic anemia: Plan: Suspect iron deficiency anemia No history of GI bleeding patient completes home cards but has never had a colonoscopy No epigastric pain, melena, or BUN elevation to suggest upper GI bleeding Treat iron deficiency with iron repletion Will need GI evaluation outpatient (4) Sinus tachycardia: Plan: At baseline longstanding history of this however she has not been hypoxic in the past (5) Sleep apnea: Plan: CPAP at bedtime (6) COPD (chronic obstructive pulmonary disease): Plan: No wheezing on admission. No acute exacerbation. Continue inhalers Plan DVT prophylaxis: SCDs due to anemia Disposition: PCU CODE STATUS: Full code Diet: HH Admission and Anticipated Discharge Date Admission Date: November 04, 2023 Subjective Patient says that she is not as dizzy today. I was just informed that her orthostatic vital signs were negative. She has not been seen by PT and OT. Her MRI was completed Review of Systems Review of Systems: All systems reviewed & are unremarkable except as noted in Subjective Physical Exam Physical Exam: General: Awake, conversant Heart: S1, S2/regular rate and rhythm, no murmur rubs or gallops Lungs: Clear to auscultation bilaterally. Normal effort Abdomen: Soft/nontender/nondistended. No hepatosplenomegaly Extremities: No clubbing/cyanosis. No edema Behavior: Appropriate, cooperative Results & Data Results & Data Vital Signs (Past 12 Hours) Vital Signs Temp Pulse Resp BP Pulse Ox O2 Del Method O2 Flow Rate 11/06/23 15:19 37.8 C H 73 18 116/74 92 Nasal Cannula 2 11/06/23 11:29 36.7 C 88 18 119/74 92 Nasal Cannula 2 11/06/23 08:00 Nasal Cannula 3 11/06/23 07:35 36.9 C 95 H 18 115/63 91 Nasal Cannula 2 Laboratory Results Abnormal lab results 11/05/23 11/05/2311/05/24 Range/Units 16:09 19:53 06:12 WBC 14.22 H (4.8-10.8) K/ul Hgb 9.4 L (12.0-16.0) g/dl Hct 33.9 L (37.0-47.0) % MCV 70.6 L (80.0-100.0) fL MCH 19.6 L (25.0-34.0) pg MCHC 27.7 L (32.0-36.0) g/dL RDW Std Deviation 47.9 H (36.4-46.3) fL RDW Coeff of Shanna 19.6 H (11.5-14.5) % Neut # (Auto) 12.21 H (1.40-6.50) K/uL [place] # (Auto) 0.66 H (0.11-0.59) K/uL BUN/Creatinine Ratio 36.5 H (10-20) Glucose 122 H (70-99(Fasting)) mg/dl POC Glucose 201 H 148 H (70-99) mg/dl 11/06/23 11/06/23 Range/Units 07:17 11:14 WBC (4.8-10.8) K/ul Hgb (12.0-16.0) g/dl Hct (37.0-47.0) % MCV (80.0-100.0) fL MCH (25.0-34.0) pg MCHC (32.0-36.0) g/dL RDW Std Deviation (36.4-46.3) fL RDW Coeff of Shanna (11.5-14.5) % Neut # (Auto) (1.40-6.50) K/uL [place] # (Auto) (0.11-0.59) K/uL BUN/Creatinine Ratio (10-20) Glucose (70-99(Fasting)) mg/dl POC Glucose 147 H 195 H (70-99) mg/dl PG Care Time/CCT Total # of Minutes Spent Total Time Spent with Patient: Total time spent is greater than 50% in coordination of care (as documented) at patient's floor/unit and/or counseling patient: Coding Level of Care Code 18478 SUB INP/OBS CARE 2/35MIN Diagnoses Dizziness R42 Numbness and tingling in both hands R20.0; R20.2 Microcytic anemia D50.9 Sinus tachycardia R00.0 Sleep apnea G47.30 COPD (chronic obstructive pulmonary disease) J44.9
[2023-11-06] MEDS ORDERED: POLYETHYLENE (MIRALAX) 17 GM PACK PO PRN (20:19)
[2023-11-07 06:24] LABS: Basophils # (auto) 0.04 K/uL (0.00-0.20); Basophils % (auto) 0.4 %; Eosinophils # (auto) 0.08 K/uL (0.00-0.50); Eosinophils % (auto) 0.8 %; Hemoglobin 8.4 g/dl (12.0-16.0); Immature Granulocytes # (auto) 0.06 K/uL (0.01-0.20); Immature Granulocytes % (auto) 0.6 %; Lymphocytes # (auto) 1.46 K/uL (1.20-3.40); Lymphocytes % (auto) 14.9 %; Mean Corpuscular Hemoglobin 19.4 pg (25.0-34.0); Mean Corpuscular Hgb Conc 27.1 g/dL (32.0-36.0); Mean Corpuscular Volume 71.6 fL (80.0-100.0); Mean Platelet Volume 9.6 fL (9.4-12.4); Monocytes # (auto) 0.89 K/uL (0.11-0.59); Monocytes % (auto) 9.1 %; Neutrophils # (auto) 7.29 K/uL (1.40-6.50); Neutrophils % (auto) 74.2 %; Platelet Count 210 K/uL (130-400); RDW Coefficient of Variation 19.8 % (11.5-14.5); RDW Standard Deviation 49.2 fL (36.4-46.3); Red Blood Count 4.33 M/uL (4.20-5.40); White Blood Count 9.82 K/ul (4.8-10.8)
[2023-11-07 06:43] LABS: BUN Creatinine Ratio 30.6 (10-20); Calcium 8.8 mg/dl (8.6-10.3); Est GFR (African American) 77.1 ml/min; Est GFR (Non-African American) 66.6 ml/min; Potassium 4.3 mmol/L (3.5-5.1)
--- NOTE | 2023-11-07 14:02 | Discharge Summary ---
Date of Service November 07, 2023 Admission HPI Per Admitting Provider Brynn is a 77yo F who presents with dizziness when she turns her head had some lightheadedness without syncope. She has not had any hematochezia/melena/hemoptysis; however hemoglobin is 9.4. Last hemoglobin for comparison was 2 years ago which was normal at the time. At that time she was normocytic, she is now severely microcytic with an MCV of 70.9. She also follows with cardiology for dyspnea on exertion. She was recommended to have a stress test, however she had not been having chest pain so this was not thought to be emergent at the time and was pending follow-up. She was noted to have possible inferior Q waves at time of last visit. Her echo did not show wall motion abnormalities. She does have a history of sinus tachycardia, this was evaluated with a Holter monitor and did not appear to need treatment 03/2023. Creatinine and BUN are normal. Do not suspect upper GI bleed. Patient does show mild pulmonary edema on chest x-ray which is new, and is on 2 L of oxygen which is also new. BNP is pending. Mike is seen at the bedside. She reports she has been dyspneic for around 2 days. She has noticed left leg swelling which is atypical but does have pins/hardware in that leg from a prior injury. She notes she is always tachycardic and her heart rate has been around where it normally is. She has been very short of breath on attempted exertion however which is new. She has had lightheadedness and dizziness when standing which resolves with sitting and rest. The room does not spin during these episodes. She has not had any history of vertigo in the past. She has not passed out or hit her head. She does not have any chest pain or chest pressure. No abdominal pain. No hematochezia, melena, hematemesis. She does note she has an allergy to topical iodine/Betadine which caused large blisters. She is not sure if she has an allergy to contrast dye, noted that this was in her chart and patient acknowledges but does not know what the reaction was. She also prefers to avoid steroids if at all possible as she is "sensitive to these ". She denies inspiratory/pleuritic pain. He has noticed a little bit or orthopnea which is new. Denies history of heart attacks/NH. Denies wheezing. Medical History: Reviewed Medications: Reviewed Surgical History: Reviewed Family history: Reviewed Allergies: Reviewed Social History: Reviewed Code Status: Full Principal Diagnosis Hypoxia on exertion leading to dizziness on exertion Iron deficiency anemia -- needs outpatient work-up Ambulatory dysfunction New diagnosis of Diabetes Mellitus Discharge Exam General: Awake, conversant Heart: S1, S2/regular rate and rhythm, no murmur rubs or gallops Lungs: Clear to auscultation bilaterally. Normal effort Abdomen: Soft/nontender/nondistended. No hepatosplenomegaly Extremities: No clubbing/cyanosis. No edema Behavior: Appropriate, cooperative Discharge Data Allergies Allergy/AdvReac Type Severity Reaction Status Date / Time benzoin Allergy Severe "ATE A Verified 11/04/23 12:06 HOLE IN MY SKIN" oxycodone [From OxyContin] Allergy Severe vomiting Verified 11/04/23 12:06 povidone-iodine Allergy Intermediate TOPICAL Verified 11/04/23 12:06 BETADINE-LARGE SKIN BLISTERS Iodinated Contrast Media Allergy Unknown IVP DYE Verified 11/04/23 12:06 Sulfa (Sulfonamide Allergy Unknown UNKNOWN Verified 11/04/23 12:06 Antibiotics) RXN, TAKES BACTRIM CHRONICALLY AT HOME bacitracin Allergy Unknown Verified 11/04/23 16:16 [From Triple Antibiotic] iodine Allergy Unknown Verified 11/04/23 16:16 neomycin Allergy Unknown Verified 11/04/23 16:16 [From Triple Antibiotic] polymyxin B Allergy Unknown Verified 11/04/23 16:16 [From Triple Antibiotic] lactose AdvReac Intermediate DIARRHEA Verified 11/04/23 12:06 AND 'GASSY' orange AdvReac Mild ORANGE Verified 11/04/23 12:06 JUICE-VOMITS Consultations 11/04/23 13:13 ED Decision to Admit Stat 11/04/23 23:52 Consult Cardiology Routine Ordered Studies 11/04/23 10:11 CT head/brain wo con Stat US venous doppler LE LT Stat 11/04/23 15:46 CT angio chest PE protocol Stat 11/05/23 08:54 MRI Brain [MR brain wo con] Routine Hospital Course (1) Dizziness: CT head and MRI head were negative Orthostatic vital signs were negative She was found to be hypoxic on exertion. This could be a reason for her dizziness on exertion. Oxygen will be arranged for discharge. She has COPD documented in her past medical history. The etiology for her hypoxia will need to be worked up outpatient It was noted that the patient sees cardiology outpatient and a stress test was b eing considered. This will need to be pursued outpatient. PT/OT evaluated the patient. She will need home health. A rolling walker has been arranged for. (2) Numbness and tingling in both hands: In addition to the dizziness, she complains of numbness and tingling in both upper extremity Also reported an episode of tinnitus MRI negative (3) Microcytic anemia: Suspect iron deficiency anemia No history of GI bleeding patient completes home cards but has never had a colonoscopy No epigastric pain, melena, or BUN elevation to suggest upper GI bleeding Treat iron deficiency with iron repletion Will need GI evaluation outpatient (4) Sinus tachycardia: At baseline longstanding history of this however she has not been hypoxic in the past (5) Sleep apnea: CPAP at bedtime (6) COPD (chronic obstructive pulmonary disease): No wheezing on admission. No acute exacerbation. Continue inhalers Found to be needing oxygen upon exertion Patient states that she was not aware of the diagnosis of COPD. However this was documented in the past medical history The diagnosis will need to be evaluated pursued. Oxygen has been arranged for since she is hypoxic on exertion (7) Diabetes: Her A1c was found to be elevated at 7 We discussed oral hypoglycemic agents like metformin but she would like to address this with her PCP before starting a medicine Noted that her A1c has been elevated at least over the last 1 year. Plan Patient has been discharged She has been advised to follow-up with her PCP in 1 week and with her bullet casting operator in 1 month Total Time Total Time Spent Total Time Spent (In Minutes): 35 Discharge Plan Discharge Items Patient Disposition: Home - Home Health Services Reason For Visit: PRESYNCOPE, ANEMIA, LEG SMELLING Discharge Diagnosis: Hypoxia on exertion leading to dizziness on exertion Iron deficiency anemia -- needs outpatient work-up Ambulatory dysfunction New diagnosis of Diabetes Mellitus Activity: Resume your previous activity Non-emergency contact: Primary Care Provider Call non-emergency contact if: you have any medication questions and your symptoms worsen Follow-up/Referrals: Susana Herron MD [Primary Care Provider] - 11/18/23 10:20 am Diet: Carb Consistent or DM2 and Heart Healthy Addtl Attending Provider Instructions: Advised to follow-up with PCP in 1 week Advised to note that your dizziness was thought to be related to hypoxia. Your O2 level drops with exertion. Advised to note that you have iron-deficiency anemia for which you will need outpatient work-up. Advised to follow-up with cardiology in 1 month to consider outpatient stress test to further evaluate dyspnea on exertion Pending Studies at Discharge: No Stand-Alone Forms: [facility] Medications and DC Order Prescriptions: New ferrous sulfate [Iron (ferrous sulfate)] 325 mg (65 mg iron) tablet 325 mg PO DAILY Qty: 14 0RF Continued albuterol sulfate [Ventolin HFA] 90 mcg/actuation HFA aerosol inhaler 1 inh INH Q6H PRN (Reason: shortness of breath or wheezing) Qty: 6.7 3RF montelukast 10 mg tablet 10 mg PO DAILY Qty: 90 3RF lisinopril 40 mg tablet 40 mg PO DAILY Qty: 90 3RF rosuvastatin [Crestor] 20 mg tablet 20 mg PO DAILY Qty: 90 3RF amlodipine 10 mg tablet 10 mg PO DAILY Qty: 30 11RF oxycodone-acetaminophen 5-325 mg tablet 1 - 2 tab PO Q4H MDD 8 tablets/day PRN (Reason: pain) 25 Days Qty: 200 0RF ondansetron HCl 4 mg tablet 4 mg PO BID PRN (Reason: nausea and vomiting) Qty: 20 0RF Trelegy Ellipta 100-62.5-25 mcg blister with device 1 inh inhalation Q24H Qty: 28 5RF aspirin 81 mg Tablet,Delayed Release (Dr/Ec) 81 mg PO DAILY esomeprazole magnesium 40 mg capsule,delayed release(DR/EC) 40 mg PO DAILY coenzyme Q10 [CoQ-10] 100 mg Capsule 300 mg PO DAILY diclofenac sodium 1 % Gel 2 g TOPICAL QID PRN (Reason: Pain) Rx Instructions: Apply to affected area. alendronate 70 mg tablet 70 mg PO WK Rx Instructions: take 1 tablet by mouth every week on sat. nystatin 100,000 unit/gram cream 1 applic topical BID PRN (Reason: .Flare ups) fluticasone propionate 50 mcg/actuation spray,suspension 2 spray intranasal DAILY Rx Instructions: instill 2 sprays into each nostril daily calcium carbonate-vitamin D3 [Calcium 600 with Vitamin D3] 600 mg-12.5 mcg (500 unit) Capsule 1 cap PO DAILY Discharge Orders: Discharge Order (Routine); Ordered 11/07/23 Ordered By: Sebastian Brooke Admission Data Admit Date/Time: 11/04/23 13:52 Attending Provider: Sebastian Brooke Admit Provider: Adam Rebollar Primary Care Provider: Susana Herron Other Providers: Adam Rebollar; [facility] Other Interventions: Discharge Summary Assessment (RN) Last Done: 11/07/23 13:39 Coding Level of Care Code 58109 INP/OBS DISCH >30 MIN Diagnoses Dizziness R42 Numbness and tingling in both hands R20.0; R20.2 Microcytic anemia D50.9 Sinus tachycardia R00.0 Sleep apnea G47.30 COPD (chronic obstructive pulmonary disease) J44.9 Diabetes E11.9
--- NOTE | 2023-11-08 10:52 | Coding Query ---
CONGESTIVE HEART FAILURE To Promote full compliance with coding requirements relating to patient care, physician participation is requested in all cases of motor brakeman uncertainty. Please assist us with the following questions. The medical record reflects the following clinical evidence: Clinical Indicators: Presents with pulmonary edema on CXR and "fluid overload". Echo shows mild concentric LVH, EF=60-65%. BNP elevated at 120. 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 Please check the appropriate box: (x ) Present on Admission ( ) Not Present On Admission ( ) Clinically undetermined Thank you Jesica COFFMAN
== END 2023-11-07 15:59 | disposition home health service (06) | DRG 291 ==
LOC: ED 09:29 → EDINP 13:52 → SUATTDRO 13:52 → 2S 17:00

== ENCOUNTER 2024-08-18 10:39 | Inpatient (IN) ==
--- NOTE | 2024-08-18 11:14 | Emergency Department Note ---
History of Present Illness General Chief complaint: Illness Stated complaint: ILLNESS, SOB Time Seen by Provider: 08/18/24 10:59 History of Present Illness This is a 78-year-old female who presents to the emergency department via EMS with complaints of "cough, shortness of breath". The patient states that 1 week ago she began with what she thought was an upper respiratory cold-like illness. She notes cough and congestion. The cough has worsened and she notes that when she is sleeping at night she notes a "rattling" in the chest. No chest pain. She denies any history of PE or DVT. She denies any fever but notes that normally with significant illness that she does not produce a fever. The cough is productive of a whitish sputum. No hemoptysis. No unilateral leg swelling. Patient notes that she feels similar to when she had pneumonia in October 2023. Patient does not history of smoking but stopped 16 years ago. Per review of the EMR patient has a history of CHF, COPD, pulmonary emphysema. Patient initially presented to the [facility] today. She was referred from that clinic. At the [facility] clinic was noted to be hypoxic at 85-88% on room air, and then titrated to 91-94% on 3 L. She was also known to be tachycardic at [id number] at the [facility]. Patient does not use oxygen at home. On arrival here he is on 4 L nasal cannula with a heart rate of 136 and an O2 sat of 92% on room air. Of note, patient did have an echocardiogram performed on 11/05/2023 and at that time that ventricular systolic function was normal. There were no regional wall motion abnormalities noted. Mild concentric LVH. Ejection fraction 60-65. No significant valvular pathology. Trivial pericardial effusion. This was compared to the study of 10/11/2020 and no significant change was found. Home Medications Medication Instructions Recorded Confirmed Type albuterol sulfate 90 mcg/actuation 1 inh inhalation Q6H PRN shortness 10/26/22 08/18/24 Rx aerosol inhaler (Ventolin HFA) of breath or wheezing #6.7 grams aspirin 81 mg tablet,delayed 81 mg PO QAM 11/04/23 08/18/24 History release coenzyme Q10 100 mg capsule 300 mg PO HS 11/04/23 08/18/24 History (CoQ-10) diclofenac sodium 1 % topical gel 2 g topical QID PRN Pain 11/04/23 08/18/24 History miscellaneous medical supply 1 ea miscellaneous .COMPLEX #1 ea 11/26/23 08/18/24 Rx amlodipine 10 mg tablet 10 mg PO QAM 12/07/23 08/18/24 History calcium carbonate (Calcium 600) 600 mg PO QAM 12/07/23 08/18/24 History cholecalciferol (vitamin D3) 50 50 mcg PO QAM 12/07/23 08/18/24 History mcg (2,000 unit) capsule (Vitamin D3) ferrous sulfate 325 mg (65 mg 325 mg PO QAM 12/07/23 08/18/24 History iron) tablet (Iron (ferrous sulfate)) lisinopril 40 mg tablet 40 mg PO QAM 12/07/23 08/18/24 History montelukast 10 mg tablet 10 mg PO QAM 12/07/23 08/18/24 History rosuvastatin 20 mg tablet 20 mg PO HS #90 tabs 01/13/24 08/18/24 Rx metformin 500 mg tablet 500 mg PO BID #200 tabs 02/11/24 08/18/24 Rx esomeprazole magnesium 40 mg 40 mg PO QAM #30 caps 04/27/24 08/18/24 Rx capsule,delayed release alendronate 70 mg tablet 70 mg PO Q7D #12 tabs 05/19/24 08/18/24 Rx umeclidinium 62.5 mcg-vilanterol 1 inh inhalation QAM #60 ea 05/19/24 08/18/24 Rx 25 mcg/actuation powdr for inhalation (Anoro Ellipta) fluticasone propionate 50 2 spray intranasal QAM #16 grams 07/04/24 08/18/24 Rx mcg/actuation nasal spray,suspension oxycodone-acetaminophen 5 mg-325 1.5 tab PO Q4H PRN pain 08/18/24 08/18/24 History mg tablet Allergies Allergy/AdvReac Type Severity Reaction Status Date / Time benzoin Allergy Severe "ATE A Verified 08/18/24 10:00 HOLE IN MY SKIN" oxycodone [From OxyContin] Allergy Severe vomiting Verified 08/18/24 10:00 povidone-iodine Allergy Intermediate TOPICAL Verified 08/18/24 10:00 BETADINE-LARGE SKIN BLISTERS Iodinated Contrast Media Allergy Unknown IVP DYE Verified 08/18/24 10:00 Sulfa (Sulfonamide Allergy Unknown UNKNOWN Verified 08/18/24 10:00 Antibiotics) RXN, TAKES BACTRIM CHRONICALLY AT HOME bacitracin Allergy Unknown Verified 08/18/24 10:00 [From Triple Antibiotic] iodine Allergy Unknown Verified 08/18/24 10:00 neomycin Allergy Unknown Verified 08/18/24 10:00 [From Triple Antibiotic] polymyxin B Allergy Unknown Verified 08/18/24 10:00 [From Triple Antibiotic] lactose AdvReac Intermediate DIARRHEA Verified 08/18/24 10:00 AND 'GASSY' orange AdvReac Mild ORANGE Verified 08/18/24 10:00 JUICE-VOMITS Past Med/Surg History Problem List (Updated 08/18/24 @ 15:57 by Guicho Grover PA-C) Sinus tachycardia (Acute) Elevated troponin (Acute) Elevated lactic acid level (Acute) Cough (Acute) Pneumonia (Acute) Pulmonary nodule Hypoxemia (Acute) Numbness and tingling in both hands Anemia (Acute) CHF (congestive heart failure) (Acute) Microcytic anemia Sinus tachycardia (Acute) Dizziness (Acute) Diabetes Sinus tachycardia On statin therapy Sinus tachycardia by electrocardiogram MCGUIRE (dyspnea on exertion) Allergic rhinitis (Chronic) Anxiety (Chronic) Benign hypertension (Chronic 10/20/12) COPD (chronic obstructive pulmonary disease) (Chronic 10/20/12) Carotid artery stenosis (Chronic) Chronic reflux esophagitis (Chronic) Hyperlipidemia (Chronic 10/20/12) Lumbar degenerative disc disease (Chronic) Osteoporosis (Chronic) Primary osteoarthritis of both hips (Chronic) Pulmonary emphysema (Chronic) Sleep apnea (Chronic) Subclavian artery stenosis (Chronic) Medical History Hx of sleep apnea had device years ago, now only has oxygen Sinus tachycardia hx; f/u hui marte cardio Pulmonary nodule monitoring; f/u hui lakhani cardio. Osteoporosis MCGUIRE (dyspnea on exertion) pt denies Lumbar degenerative disc disease Hyperlipidemia Diabetes NIDDM COPD (chronic obstructive pulmonary disease) daily and prn inh CHF (congestive heart failure) hx; f/u hui ogden cardio Carotid artery stenosis On home oxygen therapy 1L continous via n/c; f/u hui lakhani pulm. GERD (gastroesophageal reflux disease) Hypertension Anxiety History of anemia hospitalized at [facility] 10/2023 for 4 days, had 3 iron infusions Allergic rhinitis Difficult intravenous access "they usually have to get the IV team to put it in for her" Benign neoplasm of tongue Leukocytosis gx Surgical History History of surgery on lower extremity age 17, rods and pins placed in one leg, second leg done in her 20's>due to bone deterioration History of right-sided carotid endarterectomy "she thinks this is what it was called," ~2006, [facility] Hx of total hysterectomy with removal of both tubes and ovaries age 29 S/P tonsillectomy and adenoidectomy S/P nasal surgery S/P hysterectomy duplicate S/P foot surgery due to fx>hardware intact S/P ear surgery S/P lumpectomy of breast benign S/P appendectomy Family History Mother Myocardial infarction Diabetes Hypertension Stroke syndrome Daughter Asthma Father Cancer Denies family history of Ovarian cancer Prostate cancer Breast cancer Colorectal cancer Social History Smoking Status: Former smoker Tobacco Type: Cigarettes Age Started Using Tobacco: 19; Age Quit Using Tobacco: 63; packs per day: 1.5; Smoking End Date: 16 years ago; Second Hand Exposure: No; Do You Dip or Chew Tobacco: No; Hx Alcohol Use: No Hx Substance Use: No Preferred Language: Khmer Communication Ability: Effective Visual Impairment: No Limitations Hearing Ability: Normal Senior Genetic Counselor Required: No Beliefs That Will Affect Care: None marital status: Current Living Situation: Spouse current occupational status: retired How many Children do You have: 1 Feels Safe at Home: Yes Safety Concerns: Feels Safe At This Time Childhood Exposure to Second-Hand Smoke: Yes Diet: regular Diet Comment: regular Dental Care, Regularly: Yes Physical Activity Frequency: Does not Exercise Physical Activity Frequency Comment: grocery shopping Seatbelt Use: always Sunscreen Use: No Assistive Devices: Glasses and Scooter/Electric Scooter Review of Systems A total of 10 systems reviewed and were otherwise negative Physical Exam Vital Signs Vital Signs - 24 hr 08/18/24 10:33 08/18/24 10:41 08/18/24 11:00 Temperature 37.1 C Temperature Source Oral Pulse Rate 136 H Pulse Rate [Apical] Respiratory Rate 18 Respiratory Effort / Characteristics Respiratory Depth Blood Pressure 140/81 Blood Pressure [Right Arm] 114/73 Blood Pressure Mean 100 Blood Pressure Mean [Right Arm] 86 Pulse Oximetry 82 L 92 Oxygen Delivery Method Room Air Nasal Cannula Oxygen Flow Rate 4 Sepsis Recent Fever Within 48 Hours No Sepsis New/Unexplained Change in Mental Status N/A Sepsis Action Taken by Nursing No Action Required 08/18/24 11:37 08/18/24 11:54 08/18/24 12:03 Temperature Temperature Source Pulse Rate 112 H Pulse Rate [Apical] 120 H Respiratory Rate 20 Respiratory Effort / Characteristics Non-Labored Respiratory Depth Normal Blood Pressure Blood Pressure [Right Arm] 97/51 L Blood Pressure Mean Blood Pressure Mean [Right Arm] 66 Pulse Oximetry 92 92 Oxygen Delivery Method Nasal Cannula Nasal Cannula Oxygen Flow Rate 4 4 Sepsis Recent Fever Within 48 Hours Sepsis New/Unexplained Change in Mental Status Sepsis Action Taken by Nursing VITAL SIGNS - Vital signs and nursing notes were reviewed. Tachycardic at 136, otherwise stable and afebrile. On 4 L nasal cannula saturating low 90s. GENERAL -78-year-old female appearing her stated age who is in no acute distress. Communicates well with provider and answers questions appropriately. SKIN - Without rashes. No meningeal or petechial rash. HEAD - NC/AT. EYES - PERRL with EOMI bilaterally. Sclera anicteric. EARS - No deformities of external structures noted on gross examination bilaterally. NOSE - Midline and without cyanosis. No epistaxis or purulent drainage noted. MOUTH/OROPHARYNX - Without perioral cyanosis. NECK - Neck with FROM. No nuchal rigidity. LUNGS -diminished breath sounds noted bilaterally with mild rhonchi appreciated left greater than right. CARDIAC -tachycardic without irregularity. ABDOMEN - Abdominal contour normal without pulsations or visible masses. BS normoactive all four quadrants. No tenderness, palpable masses, hepatosplenomegaly, or ascites noted. EXTREMITIES - No clubbing or peripheral cyanosis. +5/5 strength noted in UE/LE bilaterally. NEUROLOGIC - Cranial nerves II through XII grossly intact. PSYCH -alert, oriented and pleasant on exam Course Administered Medications Doxycycline Hyclate (Doxycycline Hyclate 100 Mg Cap) 100 mg PO BID LASHAE Stop: 08/23/24 20:59 Last Admin: 08/18/24 21:01 Dose: 100 mg Documented By: MICHELLE Enoxaparin Sodium (Enoxaparin Inj 40 Mg/0.4 Ml Syr) 40 mg SQ QPM LASHAE Stop: 09/17/24 20:59 Last Admin: 08/18/24 21:01 Dose: 40 mg Documented By: MICHELLE Insulin Aspart (Insulin Aspart Per Unit Charge) 0 units SC ACHS LASHAE Stop: 09/17/24 16:29 Last Admin: 08/18/24 21:02 Dose: 1 units Documented By: MICHELLE Co-signed By: SHELLIE Admin: 08/18/24 17:34 Dose: Not Given Documented By: Oxycodone/Acetaminophen (Oxycodone/Acetaminophen 5mg/325mg Tab) 1.5 tab PO Q4H PRN PRN Reason: pain Stop: 09/01/24 16:20 Last Admin: 08/18/24 17:33 Dose: 1.5 tab Documented By: Rosuvastatin Calcium (Rosuvastatin Calcium 20 Mg Tab) 20 mg PO HS LASHAE Stop: 09/17/24 20:59 Last Admin: 08/18/24 21:02 Dose: 20 mg Documented By: MICHELLE Discontinued Medications Albuterol (Albut/Ipratrop 3mg/0.5mg Neb 3 Ml Vial) 3 ml NEB NOW STA; Protocol Stop: 08/18/24 11:30 Last Admin: 08/18/24 11:54 Dose: 3 ml Documented By: MICHI Doxycycline Hyclate (Doxycycline Hyclate 100 Mg Cap) 100 mg PO NOW STA Stop: 08/18/24 11:28 Last Admin: 08/18/24 11:54 Dose: 100 mg Documented By: MICHI Ceftriaxone Sodium (Rocephin) 2,000 mg in 50 mls @ 100 mls/hr IV NOW STA Stop: 08/18/24 11:56 Last Infusion: 08/18/24 12:20 Dose: Infused Documented By: Admin: 08/18/24 11:53 Dose: 100 mls/hr Documented By: MICHI Sodium Chloride (Nss) 1,000 mls @ 109 mls/hr IV .Q9H11M [facility] Stop: 08/19/24 11:29 Last Admin: 08/18/24 12:48 Dose: Not Given Documented By: MICHI Sodium Chloride (Nss) 1,000 mls @ 999 mls/hr IV .Q1H1M ONE Stop: 08/18/24 12:38 Last Infusion: 08/18/24 12:48 Dose: Infused Documented By: Admin: 08/18/24 11:54 Dose: 999 mls/hr Documented By: MICHI Sodium Chloride (Nss) 1,000 mls @ 999 mls/hr IV .Q1H1M ONE Stop: 08/18/24 12:46 Last Infusion: 08/18/24 13:51 Dose: Infused Documented By: Admin: 08/18/24 12:48 Dose: 999 mls/hr Documented By: MICHI Sodium Chloride (Nss) 500 mls @ 999 mls/hr IV .Q31M ONE Stop: 08/18/24 12:42 Last Admin: 08/18/24 15:39 Dose: Not Given Documented By: Medical Decision Making Laboratory Data 08/18/24 11:11 08/18/24 11:11 Lab Results 08/18/24 08/18/24 08/18/24 Range/Units 11:11 12:53 12:57 WBC 12.13 H (4.8-10.8) K/ul RBC 4.68 (4.20-5.40) M/uL Hgb 13.9 (12.0-16.0) g/dl Hct 42.4 (37.0-47.0) % MCV 90.6 (80.0-100.0) fL MCH 29.7 (25.0-34.0) pg MCHC 32.8 (32.0-36.0) g/dL RDW Std Deviation 44.8 (36.4-46.3) fL RDW Coeff of Shanna 13.4 (11.5-14.5) % Plt Count 221 (130-400) K/uL MPV 9.7 (9.4-12.4) fL Immature Gran % (Auto) 0.6 % Neut % (Auto) 83.7 % Lymph % (Auto) 10.1 % Major % (Auto) 5.4 % Eos % (Auto) 0.0 % Baso % (Auto) 0.2 % Neut # (Auto) 10.15 H (1.40-6.50) K/uL Lymph # (Auto) 1.23 (1.20-3.40) K/uL Major # (Auto) 0.65 H (0.11-0.59) K/uL Eos # (Auto) 0.00 (0.00-0.50) K/uL Baso # (Auto) 0.03 (0.00-0.20) K/uL Immature Gran # (Auto) 0.07 (0.01-0.20) K/uL PT 11.3 (9.0-12.0) Seconds INR 1.0 (0.9-1.1) APTT 27 (21-31) Seconds PTT Ratio 1.0 VBG pH 7.42 H (7.36-7.41) VBG pCO2 42 (38-50) mmHg VBG pO2 42 mmHg VBG HCO3 27 mmol/L VBG O2 Saturation 69.8 % VBG Base Excess 2.4 mEq/L Sodium 139 (136-145) mmol/L Potassium 3.5 (3.5-5.1) mmol/L Chloride 102 (98-107) mmol/L Carbon Dioxide 27 (21-32) mmol/L Anion Gap 10 (3-11) BUN 17 (6-23) mg/dl Creatinine 0.67 (0.6-1.2) mg/dl Est Cr Clr Drug Dosing 59.4 ml/min eGFR 89.96 BUN/Creatinine Ratio 25.4 H (10-20) Glucose 163 H (70-99(Fasting)) mg/dl Lactate 3.3 H* 2.8 H* (0.4-2.0) mmol/L Calcium 9.3 (8.6-10.3) mg/dl Magnesium 1.3 L (1.7-2.4) mg/dl Total Bilirubin 0.7 (0.2-1.0) mg/dl AST 12 L (13-39) U/L ALT 10 (7-52) U/L Alkaline Phosphatase 62 (34-104) U/L Troponin I High Sens 87.3 H* (0-14) pg/ml B-Natriuretic Peptide 116 H (0-100) pg/ml Total Protein 7.6 (6.0-8.3) gm/dl Albumin 3.9 (3.4-5.0) gm/dl Globulin 3.7 (2.5-4.0) gm/dl Albumin/Globulin Ratio 1.1 (0.9-2) Lipase 12 (11-82) U/L Procalcitonin 0.11 (0-0.5) ng/ml TSH 0.810 (0.300-4.500) uIu/ml Urine Color Yellow Urine Appearance Turbid A (Clear) Urine pH 5.5 (4.5-7.5) Ur Specific [place] 1.010 (1.000-1.030) Urine Protein Negative (Negative) Urine Glucose (UA) Negative (Negative) Urine Ketones Negative (Negative) Urine Blood Negative (Negative) Urine Nitrite Negative (Negative) Urine Bilirubin Negative (Negative) Urine Urobilinogen Negative (Negative) Ur Leukocyte Esterase Negative (Negative) Urine RBC 0-2 (0-2) /hpf Urine WBC 0-5 (0-5) /hpf Ur Epithelial Cells 0-2 (0-2) /hpf Urine Bacteria None Seen (None Seen) Urine Mucus Present A (None Prsent) Imaging Data Radiologist's Impression: Chest X-Ray 08/18/24 11:03 XR chest 1V portable CLINICAL HISTORY: cough COMPARISON STUDY: 11/04/2023 FINDINGS: Stable cardiomegaly without pulmonary vascular congestion. There is interval stranding opacity at the left base with partial obscuration of the diaphragm. No pleural effusion. IMPRESSION: Atelectasis versus early pneumonia left lung base. ACT 112: Negative or not required by law. Electronically signed by: Dougie Gallardo M.D. 08/18/2024 11:22 AM MDM Narrative Patient was seen and evaluated as above in room C08. Review was performed of triage nursing notes and vital signs. I did review pertinent previous visits and patient history. After obtaining a thorough history and physical examination the above work up was performed. Patient presents to us today via EMS referred by [facility] for about 6 days of cough, congestion, lightheadedness. Was noted to be hypoxic at the [facility] care and referred here. Patient was placed on 4 L nasal cannula on arrival and is now saturating the low 90s. She is overall well-appearing without any acute respiratory distress. She is not hypotensive. No fever here. No tachypnea. EKG reveals per my interpretation sinus tachycardia at a rate of 129 bpm. QTc 445. QRS 78. No ST elevation on this rhythm tracing. Options of care were discussed with the patient. IV access was established and labs were drawn. A chest x-ray was performed. Per my interpretation there is concern for pneumonia left lung base. Laboratory studies reveal leukocytosis 12.13. No anemia. VBG pH 7.42. BUN/creatinine ratio elevated at 25.4 and the patient does appear volume depleted. Lactate elevated at 3.3. Magnesium low at 1.3. I did order 2000 mL bolus of NSS as the patient is tachycardic and has an elevated lactate in the setting of infectious etiology. This is based on patient's body weight of 68kg. Although there is a diagnosis of CHF in the EMR, of note, patient did have an echocardiogram performed on 11/05/2023 and at that time that ventricular systolic function was normal. There were no regional wall motion abnormalities noted. Mild concentric LVH. Ejection fraction 60-65. No significant valvular pathology. Trivial pericardial effusion. This was compared to the study of 10/11/2020 and no significant change was found. Repeat lactate reveals a downtrending value from 3.3-2.8 with the IV fluids. BNP is elevated at 116 and troponin mildly elevated at 87.3 with recheck of 74.8. No chest pain. I do not suspect ACS at this time. The patient certainly requires hospitalization. Case discussed with the hospitalist service. Workup for PE considered such as CTA of the chest. Patient does note significant reaction to iodine. I did review the EMR and she had a CTA of the chest following premedication during her hospitalization in October 2023. At this time noting strong suspicion for infection noting elevated white blood cell count, elevated lactate, detectable procalcitonin, and pneumonia seen on chest x-ray will defer further assessment of PE at this time pending clinical course. Patient was reassessed multiple times during her time here. I will also note that patient was carefully monitored for signs of volume overload noting need for IV fluids here. Patient was reassessed at 12:11 PM. At that point she just finished a breathing treatment and was being transition from the breathing treatment to nasal cannula. She was saturating 84% temporarily but that was without any supplement which was immediately restarted. She had received about half of the fluid bag. Once the patient was placed back on 4 L nasal cannula the O2 rebounded nicely. 1301 HRSI reevaluate the patient and she is doing well with the fluid. No signs of fluid overload. Blood pressure is improving. Heart rate is also improving. No increased work of breathing 1345 HRSpatient reassessed again and is undergoing echocardiogram at bedside. Blood pressure continues to improve. Heart rate is in the 140s during the echo but there is no increased work of breathing. No signs of volume overload acutely from IV fluids at this time. 1400 hrs-patient conversing in full sentences. No dyspnea. Saturating high 80s/low 90s on nasal cannula. Heart rate in the 120s-130s but with improving blood pressure. No sign of volume overload at this time. Bed is ready for the patient and she will be taken upstairs noted to admitted status for further assessment and evaluation/management. Please refer to further documentation regarding her stay. GCS: 15 In the evaluation and treatment of this patient the following differential diagnoses were entertained: Pneumonia, NC, PE, electrolyte disturbance, among others. Impression & Plan Pneumonia, Hypoxemia, Cough, Elevated lactic acid level, Elevated troponin, Sinus tachycardia Discharge Plan Visit Data Chief Complaint: Illness Stated Complaint: ILLNESS, SOB ED Provider: Jose Luis Alvarado ED Midlevel Provider: Guicho Grover Discharge Problem: Pneumonia, Hypoxemia, Cough, Elevated lactic acid level, Elevated troponin, Sinus tachycardia Patient Disposition: Admitted As Inpatient Condition: Fair Discharge Instructions Interventions: ED Discharge Assessment Last Done: 08/18/24 14:51
--- NOTE | 2024-08-18 11:23 | XRay Report ---
XR chest 1V portable CLINICAL HISTORY: cough COMPARISON STUDY: 11/04/2023 FINDINGS: Stable cardiomegaly without pulmonary vascular congestion. There is interval stranding opac ity at the left base with partial obscuration of the diaphragm. No pleural effusion. IMPRESSION: Atelectasis versus early pneumonia left lung base. ACT 112: Negative or not required by law. Electronically signed by: Dougie Gallardo M.D. 08/18/2024 11:22 AM
[2024-08-18 11:27] LABS: Basophils # (auto) 0.03 K/uL (0.00-0.20); Basophils % (auto) 0.2 %; Hematocrit (blood only) 42.4 % (37.0-47.0); Hemoglobin 13.9 g/dl (12.0-16.0); Immature Granulocytes # (auto) 0.07 K/uL (0.01-0.20); Immature Granulocytes % (auto) 0.6 %; Lymphocytes # (auto) 1.23 K/uL (1.20-3.40); Lymphocytes % (auto) 10.1 %; Mean Corpuscular Hemoglobin 29.7 pg (25.0-34.0); Mean Corpuscular Hgb Conc 32.8 g/dL (32.0-36.0); Mean Corpuscular Volume 90.6 fL (80.0-100.0); Mean Platelet Volume 9.7 fL (9.4-12.4); Monocytes # (auto) 0.65 K/uL (0.11-0.59); Monocytes % (auto) 5.4 %; Neutrophils # (auto) 10.15 K/uL (1.40-6.50); Neutrophils % (auto) 83.7 %; Platelet Count 221 K/uL (130-400); RDW Coefficient of Variation 13.4 % (11.5-14.5); RDW Standard Deviation 44.8 fL (36.4-46.3); Red Blood Count 4.68 M/uL (4.20-5.40); White Blood Count 12.13 K/ul (4.8-10.8)
[2024-08-18 11:31] LABS: Base Excess VBG 2.4 mEq/L; HCO3 VBG 27 mmol/L; Oxygen Saturation VBG 69.8 %; PCO2 VBG 42 mmHg (38-50); PO2 VBG 42 mmHg; pH VBG 7.42 (7.36-7.41)
[2024-08-18 11:43] LABS: Albumin Globulin Ratio 1.1 (0.9-2); Albumin Level 3.9 gm/dl (3.4-5.0); BUN Creatinine Ratio 25.4 (10-20); Bilirubin,Total 0.7 mg/dl (0.2-1.0); Calcium 9.3 mg/dl (8.6-10.3); Creatinine Clr Calc Pharmacy 59.4 ml/min; Globulin 3.7 gm/dl (2.5-4.0); Magnesium 1.3 mg/dl (1.7-2.4); Potassium 3.5 mmol/L (3.5-5.1); Total Protein 7.6 gm/dl (6.0-8.3)
[2024-08-18] MEDS: cefTRIAXone SODIUM 2,000 MG/50 ML BAG IV STA (11:53)
[2024-08-18] MEDS: DOXYCYCLINE HYCLATE 100 MG CAP PO STA (11:54)
[2024-08-18] MEDS: ALBUT/IPRATROP 3MG/0.5MG NEB 3 ML VIAL NEB STA (11:54)
[2024-08-18] MEDS: SODIUM CHLORIDE 0.9% 1,000 ML IV ONE ×2 (11:54→12:48)
[2024-08-18 11:56] LABS: Partial Thromboplastin Time 27 Seconds (21-31); Prothrombin Time 11.3 Seconds (9.0-12.0)
[2024-08-18 11:58] LABS: Thyroid Stimulating Hormone 0.81 uIu/ml (0.300-4.500)
--- NOTE | 2024-08-18 12:11 | Emergency Department Note ---
ED Visit Note Patient seen in conjunction with physician certified pharmacist assistant HPI: Patient 78-year-old female presenting with cough shortness of breath. Patient does not wear oxygen at baseline requiring 3 to 4 L nasal cannula currently. Exam: Wheezing bilaterally A&P: Patient 78-year-old female presenting with shortness of breath cough. Patient's chest x-ray shows pneumonia. Patient has leukocytosis and elevated lactate. Patient is not been admitted in the past 3 months time. Patient started on antibiotics and ordered 30 cc/kg bolus. Patient will be admitted to hospital service further treatment and evaluation Dx: Pneumonia, sepsis, hypoxia Dispo: Admit I agree with the physician assistants work-up and treatment plan. Please see their note for more detailed exam findings. I performed a substantive portion of the visit including all aspects of medical decision making. .
[2024-08-18 12:12] LABS: Troponin I High Sensitivity 87.3 pg/ml (0-14)
--- NOTE | 2024-08-18 12:38 | Electrocardiogram Report ---
Test Reason : Blood Pressure : */* mmHG Vent. Rate : 129 BPM Atrial Rate : 129 BPM P-R Int : 158 ms QRS Dur : 78 ms QT Int : 304 ms P-R-T Axes : 41 -2 46 degrees QTcB Int : 445 ms Poor R wave progression, consider anterior HI vs. lead placement vs. LVH Abnormal ECG When compared with ECG of 16-May-2024 11:54, Premature ventricular complexes are now Present Arm lead reversal corrected Confirmed by Zac Quintero ([id number]) on 08/18/2024 12:37:55 PM Referred By: REFERRED SELF Confirmed By: Zac uQintero
[2024-08-18] MEDS: SODIUM CHLORIDE 0.9% 1,000 ML IV SCH (12:48)
--- NOTE | 2024-08-18 12:52 | History & Physical Report ---
Date of Service August 18, 2024 Assessment & Plan (1) Coronavirus infection: (2) Sinus tachycardia: (3) Elevated troponin: (4) Sepsis: (5) Elevated lactic acid level: (6) Cough: (7) Acute respiratory failure with hypoxia: Admission and Anticipated Discharge Date Admission Date: 78-year-old female presents to the ER with 1 week history shortness of breath, cough, chills and hypoxia. #Sepsis / Pneumonia /acute hypoxic respiratory failure /coronavirus OC 43 Source of sepsis is pneumonia, lactate less than 4, however with blood pressure 97/51 we will give 30 mL/kg bolus (7 mL) with 2.5 L normal saline Lactate improved from 3.3-2.8 Normal contact isolation precautions for coronavirus Empiric antibiotics covering for pneumonia with IV ceftriaxone + PO doxycycline Aim O2 sats greater than 90% Incentive spirometer, flutter valve holding antihypertensives due to hypotension POCUS performed at bedside with hyperdynamic left ventricle, no significant pericardial effusion or DVT seen #Elevated troponin with history of pericardial effusion Most likely demand-ischemia without chest pain TTE ordered to assess for wall motion abnormalities and pericardial effusion #COPD No significant wheezing when seen therefore defer regular nebulizers or steroids although this was after being given a nebulizer by the emergency room provider Continue routine maintenance inhalers\\ #Sleep apnea Noted as diagnosis on chart although patient reports does not use CPAP at home VTE prophylaxis - Lovenox 40 mg subcu daily Diet - T2DM Disposition - admit to PCU History of Present Illness Chief Complaint: Shortness of breath Primary Care Provider: Susana Herron MD Brynn Lan is a 78 year old female who presents to the ER with shortness of breath, cough, chills, fatigue, myalgias for the last week. She reports her symptoms progressively became worse over the last week. She went to express care earlier today and was noted to be hypoxic at 85 to 88% on room air and tachycardic therefore sent to the ER via EMS. She denies any chest pain, palpitations, presyncope, leg swelling or calf pain. No prior history of pulmonary embolism. Shortness of breath is worse on lying flat but she notes this is because of her chronic back pain. She is on room air at baseline and currently requiring 4 L/min O2 to maintain O2 sats greater than 90%. Allergies Allergy/AdvReac Type Severity Reaction Status Date / Time benzoin Allergy Severe "ATE A Verified 08/18/24 10:00 HOLE IN MY SKIN" oxycodone [From OxyContin] Allergy Severe vomiting Verified 08/18/24 10:00 povidone-iodine Allergy Intermediate TOPICAL Verified 08/18/24 10:00 BETADINE-LARGE SKIN BLISTERS Iodinated Contrast Media Allergy Unknown IVP DYE Verified 08/18/24 10:00 Sulfa (Sulfonamide Allergy Unknown UNKNOWN Verified 08/18/24 10:00 Antibiotics) RXN, TAKES BACTRIM CHRONICALLY AT HOME bacitracin Allergy Unknown Verified 08/18/24 10:00 [From Triple Antibiotic] iodine Allergy Unknown Verified 08/18/24 10:00 neomycin Allergy Unknown Verified 08/18/24 10:00 [From Triple Antibiotic] polymyxin B Allergy Unknown Verified 08/18/24 10:00 [From Triple Antibiotic] lactose AdvReac Intermediate DIARRHEA Verified 08/18/24 10:00 AND 'GASSY' orange AdvReac Mild ORANGE Verified 08/18/24 10:00 JUICE-VOMITS Home Medications Medication Instructions Recorded Confirmed Type albuterol sulfate 90 mcg/actuation 1 inh inhalation Q6H PRN shortness 10/26/22 08/18/24 Rx aerosol inhaler (Ventolin HFA) of breath or wheezing #6.7 grams aspirin 81 mg tablet,delayed 81 mg PO QAM 11/04/23 08/18/24 History release coenzyme Q10 100 mg capsule 300 mg PO HS 11/04/23 08/18/24 History (CoQ-10) diclofenac sodium 1 % topical gel 2 g topical QID PRN Pain 11/04/23 08/18/24 History miscellaneous medical supply 1 ea miscellaneous .COMPLEX #1 ea 11/26/23 08/18/24 Rx amlodipine 10 mg tablet 10 mg PO QAM 12/07/23 08/18/24 History calcium carbonate (Calcium 600) 600 mg PO QAM 12/07/23 08/18/24 History cholecalciferol (vitamin D3) 50 50 mcg PO QAM 12/07/23 08/18/24 History mcg (2,000 unit) capsule (Vitamin D3) ferrous sulfate 325 mg (65 mg 325 mg PO QAM 12/07/23 08/18/24 History iron) tablet (Iron (ferrous sulfate)) lisinopril 40 mg tablet 40 mg PO QAM 12/07/23 08/18/24 History montelukast 10 mg tablet 10 mg PO QAM 12/07/23 08/18/24 History rosuvastatin 20 mg tablet 20 mg PO HS #90 tabs 01/13/24 08/18/24 Rx metformin 500 mg tablet 500 mg PO BID #200 tabs 02/11/24 08/18/24 Rx esomeprazole magnesium 40 mg 40 mg PO QAM #30 caps 04/27/24 08/18/24 Rx capsule,delayed release alendronate 70 mg tablet 70 mg PO Q7D #12 tabs 05/19/24 08/18/24 Rx umeclidinium 62.5 mcg-vilanterol 1 inh inhalation QAM #60 ea 05/19/24 08/18/24 Rx 25 mcg/actuation powdr for inhalation (Anoro Ellipta) fluticasone propionate 50 2 spray intranasal QAM #16 grams 07/04/24 08/18/24 Rx mcg/actuation nasal spray,suspension oxycodone-acetaminophen 5 mg-325 1.5 tab PO Q4H PRN pain 08/18/24 08/18/24 History mg tablet Past Med/Surg History Problem List (Updated 08/19/24 @ 02:01 by Morgan Martínez MD) Acute respiratory failure with hypoxia Sepsis Coronavirus infection Sinus tachycardia (Acute) Elevated troponin (Acute) Elevated lactic acid level (Acute) Cough (Acute) Pneumonia (Acute) Pulmonary nodule Hypoxemia (Acute) Numbness and tingling in both hands Anemia (Acute) CHF (congestive heart failure) (Acute) Microcytic anemia Sinus tachycardia (Acute) Dizziness (Acute) Diabetes Sinus tachycardia On statin therapy Sinus tachycardia by electrocardiogram MCGUIRE (dyspnea on exertion) Allergic rhinitis (Chronic) Anxiety (Chronic) Benign hypertension (Chronic 10/20/12) COPD (chronic obstructive pulmonary disease) (Chronic 10/20/12) Carotid artery stenosis (Chronic) Chronic reflux esophagitis (Chronic) Hyperlipidemia (Chronic 10/20/12) Lumbar degenerative disc disease (Chronic) Osteoporosis (Chronic) Primary osteoarthritis of both hips (Chronic) Pulmonary emphysema (Chronic) Sleep apnea (Chronic) Subclavian artery stenosis (Chronic) Medical History Hx of sleep apnea had device years ago, now only has oxygen Sinus tachycardia hx; f/u [facility]e cardio Pulmonary nodule monitoring; f/u [facility] lak[facility] cardio. Osteoporosis MCGUIRE (dyspnea on exertion) pt denies Lumbar degenerative disc disease Hyperlipidemia Diabetes NIDDM COPD (chronic obstructive pulmonary disease) daily and prn inh CHF (congestive heart failure) hx; f/u [facility] ogden cardio Carotid artery stenosis On home oxygen therapy 1L continous via n/c; f/u hui lakhani pulm. GERD (gastroesophageal reflux disease) Hypertension Anxiety History of anemia hospitalized at [facility], [place] 10/2023 for 4 days, had 3 iron infusions Allergic rhinitis Difficult intravenous access "they usually have to get the IV team to put it in for her" Benign neoplasm of tongue Leukocytosis gx Surgical History History of surgery on lower extremity age 17, rods and pins placed in one leg, second leg done in her 20's>due to bone deterioration History of right-sided carotid endarterectomy "she thinks this is what it was called," ~2006, [facility], [place] Hx of total hysterectomy with removal of both tubes and ovaries age 29 S/P tonsillectomy and adenoidectomy S/P nasal surgery S/P hysterectomy duplicate S/P foot surgery due to fx>hardware intact S/P ear surgery S/P lumpectomy of breast benign S/P appendectomy Family History Mother Myocardial infarction Diabetes Hypertension Stroke syndrome Daughter Asthma Father Cancer Denies family history of Ovarian cancer Prostate cancer Breast cancer Colorectal cancer Social History Smoking Status: Former smoker Tobacco Type: Cigarettes Age Started Using Tobacco: 19; Age Quit Using Tobacco: 63; packs per day: 1.5; Smoking End Date: 16 years ago; Second Hand Exposure: No; Do You Dip or Chew Tobacco: No; Hx Alcohol Use: No Hx Substance Use: No Preferred Language: Maltese Communication Ability: Effective Visual Impairment: No Limitations Hearing Ability: Normal Guest Relation Officer Required: No Beliefs That Will Affect Care: None marital status: Current Living Situation: Spouse current occupational status: retired How many Children do You have: 1 Feels Safe at Home: Yes Safety Concerns: Feels Safe At This Time Childhood Exposure to Second-Hand Smoke: Yes Diet: regular Diet Comment: regular Dental Care, Regularly: Yes Physical Activity Frequency: Does not Exercise Physical Activity Frequency Comment: grocery shopping Seatbelt Use: always Sunscreen Use: No Assistive Devices: Glasses and Scooter/Electric Scooter Review of Systems Review of Systems: All systems reviewed & are unremarkable except as noted in HPI & below Physical Exam Constitutional: WD/WN, vitals as above ENMT: Mouth: + dry oral mucous membranes Respiratory: + labored breathing and + uses accessory muscles Auscultation: + diminished lung sounds (bibasal), + crackles (Left basal) and + rhonchi (Right base); no wheezes Cardiovascular: Rate/Rhythm: regular rhythm and + tachycardic Heart Sounds: no murmur Extremities: normal capillary refill; no calf tenderness and no pedal edema Gastrointestinal (Abdomen): normal bowel sounds, soft, nontender, no hepatosplenomegaly Skin: no rashes, warm and dry Neurologic: moves all extremities and awake; not confused Psychiatric: A+Ox3, euthymic affect Results & Data Results & Data Vital Signs (Past 12 Hours) Vital Signs Temp Pulse Pulse Resp BP BP Pulse Ox 08/18/24 12:03 120 H 20 97/51 L 92 08/18/24 11:54 112 H 08/18/24 11:37 92 08/18/24 10:41 92 08/18/24 10:33 37.1 C 136 H 18 140/81 82 L O2 Del Method O2 Flow Rate 08/18/24 12:03 Nasal Cannula 4 08/18/24 11:54 08/18/24 11:37 Nasal Cannula 4 08/18/24 10:41 Nasal Cannula 4 08/18/24 10:33 Room Air Laboratory Results Abnormal lab results 08/18/24 Range/Units 11:11 WBC 12.13 H (4.8-10.8) K/ul Neut # (Auto) 10.15 H (1.40-6.50) K/uL Cochran # (Auto) 0.65 H (0.11-0.59) K/uL VBG pH 7.42 H (7.36-7.41) BUN/Creatinine Ratio 25.4 H (10-20) Glucose 163 H (70-99(Fasting)) mg/dl Lactate 3.3 H* (0.4-2.0) mmol/L Magnesium 1.3 L (1.7-2.4) mg/dl AST 12 L (13-39) U/L Troponin I High Sens 87.3 H* (0-14) pg/ml B-Natriuretic Peptide 116 H (0-100) pg/ml Diagnostic Findings XR chest 1V portable CLINICAL HISTORY: cough COMPARISON STUDY: 11/04/2023 FINDINGS: Stable cardiomegaly without pulmonary vascular congestion. There is interval stranding opacity at the left base with partial obscuration of the diaphragm. No pleural effusion. IMPRESSION: Atelectasis versus early pneumonia left lung base. Medications Administered ER medications given: Ceftriaxone 2 g IV Doxycycline 100 mg p.o. Normal saline 1 L bolus Normal saline 1 L bolus DuoNeb 3 ml DuoNeb ECG Rate (beats per minute): 129 Rhythm: sinus tachycardia Findings: + PAC and + PVC Comparison ECG Date: from (May 16, 2024) Change: the following changes noted (PVC now present) Code Status & VTE Plan Code Status Full VTE Prophylaxis Plan VTE Prophylaxis will be ordered: Yes PG Care Time/CCT Total # of Minutes Spent Total Time Spent with Patient: Total time spent is greater than 50% in coordination of care (as documented) at patient's floor/unit and/or counseling patient: Coding Level of Care Code 29958 INT INP/OBS CARE 3/75MIN Diagnoses Coronavirus infection B34.2 Sinus tachycardia R00.0 Elevated troponin R79.89 Sepsis A41.9 Elevated lactic acid level R79.89 Cough R05.9 Acute respiratory failure with hypoxia J96.01
[2024-08-18 13:08] LABS: Adenovirus PCR Not Detected (NotDetected); Bordetella parapertussis PCR Not Detected (NotDetected); Bordetella pertussis PCR Not Detected (NotDetected); Chlamydia pneumoniae PCR Not Detected (NotDetected); Coronavirus 229E PCR Not Detected (NotDetected); Coronavirus CoV-2 (COVID19)PCR Not Detected (NotDetected); Coronavirus HKU1 PCR Not Detected (NotDetected); Coronavirus NL63 PCR Not Detected (NotDetected); Coronavirus OC43PCR DETECTED (NotDetected); Human Metapneumovirus PCR Not Detected (NotDetected); Influenza A PCR Not Detected (NotDetected); Influenza B PCR Not Detected (NotDetected); Mycoplasma pneumoniae PCR Not Detected (NotDetected); Parainfluenza Virus 1 PCR Not Detected (NotDetected); Parainfluenza Virus 2 PCR Not Detected (NotDetected); Parainfluenza Virus 3 PCR Not Detected (NotDetected); Parainfluenza Virus 4 PCR Not Detected (NotDetected); Respiratory Syncytial VirusPCR Not Detected (NotDetected); Rhinovirus/Enterovirus PCR Not Detected (NotDetected)
[2024-08-18 13:44] LABS: Appearance Urine Turbid (Clear); Bilirubin Urine Negative (Negative); Blood Urine Negative (Negative); Color Urine Yellow; Glucose Urine UA Negative (Negative); Ketones Urine Negative (Negative); Leukocyte Esterase Urine Negative (Negative); Nitrite Urine Negative (Negative); Protein Urine Negative (Negative); Urobilinogen Urine Negative (Negative); pH Urine 5.5 (4.5-7.5)
[2024-08-18 14:02] LABS: Bacteria Urine None Seen (None Seen); Epithelial Cell Urine 0-2 /hpf (0-2); Mucus Urine Present (None Prsent); RBC Urine 0-2 /hpf (0-2); WBC Urine 0-5 /hpf (0-5)
[2024-08-18] MEDS ORDERED: CARBOHYDRATES FOR HYPOGLYCEMIA PO PRN (15:23)
[2024-08-18] MEDS ORDERED: GLUCAGON FOR INJ 1 MG VIAL SQ PRN (15:23)
[2024-08-18] MEDS ORDERED: GLUCOSE 10 TAB/TUBE PO PRN (15:23)
[2024-08-18] MEDS ORDERED: DEXTROSE 50% 50 ML SYRINGE IV PRN (15:23)
[2024-08-18] MEDS ORDERED: GLUCOSE 40% GEL 15 GM TUBE PO PRN (15:23)
[2024-08-18] MEDS: SODIUM CHLORIDE 0.9% 500 ML IV ONE (15:39)
[2024-08-18] MEDS ORDERED: DICLOFENAC SOD 1% GEL 100 GM TUBE EXT PRN (16:21)
[2024-08-18] MEDS ORDERED: INSULIN ASPART PER UNIT CHARGE SC SCH (16:30)
--- NOTE | 2024-08-18 16:34 | XCELERA ---
[id number] \\[id number]
[2024-08-18] MEDS: oxyCODONE/ACETAMINOPHEN 5mg/325mg TAB PO PRN (17:33)
[2024-08-18] MEDS: INSULIN ASPART PER UNIT CHARGE SC SCH (17:34)
[2024-08-18] MEDS: DOXYCYCLINE HYCLATE 100 MG CAP PO SCH (21:01)
[2024-08-18] MEDS: ENOXAPARIN INJ 40 MG/0.4 ML SYR SQ SCH (21:01)
[2024-08-18] MEDS: ROSUVASTATIN CALCIUM 20 MG TAB PO SCH (21:02)
[2024-08-19] MEDS ORDERED: ALBUT/IPRATROP 3MG/0.5MG NEB 3 ML VIAL NEB PRN (01:44)
[2024-08-19] MEDS: MAGNESIUM SULFATE / D5W 1 GM/100 ML BAG IV SCH (03:23)
[2024-08-19 07:35] LABS: Basophils # (auto) 0.03 K/uL (0.00-0.20); Basophils % (auto) 0.3 %; Eosinophils # (auto) 0.05 K/uL (0.00-0.50); Eosinophils % (auto) 0.6 %; Hematocrit (blood only) 36.8 % (37.0-47.0); Hemoglobin 11.7 g/dl (12.0-16.0); Immature Granulocytes # (auto) 0.06 K/uL (0.01-0.20); Immature Granulocytes % (auto) 0.7 %; Lymphocytes % (auto) 14.8 %; Mean Corpuscular Hemoglobin 29.3 pg (25.0-34.0); Mean Corpuscular Hgb Conc 31.8 g/dL (32.0-36.0); Mean Corpuscular Volume 92.2 fL (80.0-100.0); Mean Platelet Volume 9.5 fL (9.4-12.4); Monocytes # (auto) 0.52 K/uL (0.11-0.59); Monocytes % (auto) 5.9 %; Neutrophils % (auto) 77.7 %; Platelet Count 194 K/uL (130-400); RDW Coefficient of Variation 13.3 % (11.5-14.5); RDW Standard Deviation 45.4 fL (36.4-46.3); Red Blood Count 3.99 M/uL (4.20-5.40); White Blood Count 8.76 K/ul (4.8-10.8)
[2024-08-19 08:02] LABS: BUN Creatinine Ratio 24.5 (10-20); Calcium 8.2 mg/dl (8.6-10.3); Creatinine Clr Calc Pharmacy 80.4 ml/min; Magnesium 2.1 mg/dl (1.7-2.4)
[2024-08-19 08:12] LABS: Troponin I High Sensitivity 56.8 pg/ml (0-14)
[2024-08-19 08:17] LABS: Estimated Average Glucose 131 mg/dl; Hemoglobin A1C 6.2 % (4.5-5.6)
[2024-08-19] MEDS: ALENDRONATE SODIUM 70 MG TAB PO SCH (08:27)
[2024-08-19] MEDS: ASPIRIN 81 MG ECTAB PO SCH (09:18)
[2024-08-19] MEDS: FERROUS SULFATE 325 MG TAB PO SCH (09:19)
[2024-08-19] MEDS: MONTELUKAST SODIUM 10 MG TABLET PO SCH (09:19)
[2024-08-19] MEDS: FLUTICASONE PROPIONATE NA SPR 16 GM BTL NAE SCH (09:19)
[2024-08-19] MEDS: UMECLIDINIUM/VILANTEROL 62.5/25MCG 7 PUFFS/INHALER INH SCH (09:20)
[2024-08-19] MEDS: PANTOprazole 40 MG TAB PO SCH (09:20)
[2024-08-19] MEDS: cefTRIAXone SODIUM 2,000 MG/50 ML BAG IV SCH (13:01)
[2024-08-19] MEDS: CALCIUM CARBONATE 500 MG CHEWABLE TAB PO PRN (15:24)
[2024-08-19] MEDS: ONDANSETRON INJ 2 MG/ML 2 ML VIAL IV PRN (15:24)
--- NOTE | 2024-08-19 15:48 | Hospitalist Progress Note ---
Date of Service August 19, 2024 Assessment & Plan (1) Coronavirus infection: (2) Sinus tachycardia: (3) Elevated troponin: (4) Sepsis: (5) Elevated lactic acid level: (6) Cough: (7) Acute respiratory failure with hypoxia: Plan 78-year-old female presents to the ER with 1 week history shortness of breath, cough, chills and hypoxia. #Sepsis / Pneumonia /acute hypoxic respiratory failure /coronavirus OC 43 Source of sepsis is pneumonia Met sepsis criteria Lactate improved from 3.3-2.8 after hydration Normal contact isolation precautions for coronavirus Empiric antibiotics covering for pneumonia with IV ceftriaxone + PO doxycycline Aim O2 sats greater than 90%. Still on 3 L of oxygen saturating at 94% Incentive spirometer, flutter valve Blood pressure has improved Leukocytosis resolved from 12,000 #Elevated troponin with history of pericardial effusion Most likely demand-ischemia without chest pain Technically difficult to read echocardiogram but no wall motion abnormality noted #COPD No significant wheezing when seen therefore defer regular nebulizers or steroids although this was after being given a nebulizer by the emergency room provider Continue routine maintenance inhalers\ #Sleep apnea Noted as diagnosis on chart although patient reports does not use CPAP at home VTE prophylaxis - Lovenox 40 mg subcu daily Diet - T2DM Disposition - admit to PCU Admission and Anticipated Discharge Date Admission Date: August 18, 2024 Subjective Patient was seen and examined at 12 PM. She says she is feeling better compared to when she first presented but is still quite weak and is still needing oxygen. Review of Systems Review of Systems: All systems reviewed & are unremarkable except as noted in Subjective Physical Exam Physical Exam: General: Awake, conversant Heart: S1, S2/regular rate and rhythm, no murmur rubs or gallops Lungs: Clear to auscultation bilaterally. Normal effort Abdomen: Soft/nontender/nondistended. No hepatosplenomegaly Extremities: No clubbing/cyanosis. No edema Behavior: Appropriate, cooperative Results & Data Results & Data Vital Signs (Past 12 Hours) Vital Signs Temp Pulse Pulse Resp BP Pulse Ox O2 Del Method 08/19/24 14:08 91 H 08/19/24 10:53 36.4 C L 87 22 134/73 94 Nasal Cannula 08/19/24 08:58 Nasal Cannula 08/19/24 08:14 95 H 08/19/24 07:08 36.3 C L 89 17 115/67 94 Nasal Cannula O2 Flow Rate 08/19/24 14:08 08/19/24 10:53 3 08/19/24 08:58 4 08/19/24 08:14 08/19/24 07:08 3 Laboratory Results Abnormal lab results 08/18/24 08/18/24 08/19/24 Range/Units 16:25 19:29 07:13 RBC 3.99 L (4.20-5.40) M/uL Hgb 11.7 L (12.0-16.0) g/dl Hct 36.8 L (37.0-47.0) % MCHC 31.8 L (32.0-36.0) g/dL Neut # (Auto) 6.80 H (1.40-6.50) K/uL Creatinine 0.49 L (0.6-1.2) mg/dl BUN/Creatinine Ratio 24.5 H (10-20) Glucose 130 H (70-99(Fasting)) mg/dl POC Glucose 119 H 165 H (70-99) mg/dl Hemoglobin A1c 6.2 H (4.5-5.6) % Calcium 8.2 L (8.6-10.3) mg/dl Troponin I High Sens 56.8 H* D (0-14) pg/ml 08/19/24 08/19/24 Range/Units 07:14 11:22 RBC (4.20-5.40) M/uL Hgb (12.0-16.0) g/dl Hct (37.0-47.0) % MCHC (32.0-36.0) g/dL Neut # (Auto) (1.40-6.50) K/uL Creatinine (0.6-1.2) mg/dl BUN/Creatinine Ratio (10-20) Glucose (70-99(Fasting)) mg/dl POC Glucose 132 H 136 H (70-99) mg/dl Hemoglobin A1c (4.5-5.6) % Calcium (8.6-10.3) mg/dl Troponin I High Sens (0-14) pg/ml PG Care Time/CCT Total # of Minutes Spent Total Time Spent with Patient: Total time spent is greater than 50% in coordination of care (as documented) at patient's floor/unit and/or counseling patient: Coding Level of Care Code 27095 SUB INP/OBS CARE 2/35MIN Diagnoses Coronavirus infection B34.2 Sinus tachycardia R00.0 Elevated troponin R79.89 Sepsis A41.9 Elevated lactic acid level R79.89 Cough R05.9 Acute respiratory failure with hypoxia J96.01
--- NOTE | 2024-08-20 15:47 | Hospitalist Progress Note ---
Date of Service August 20, 2024 Assessment & Plan (1) Coronavirus infection: (2) Sinus tachycardia: (3) Elevated troponin: (4) Sepsis: (5) Elevated lactic acid level: (6) Cough: (7) Acute respiratory failure with hypoxia: Plan 78-year-old female presents to the ER with 1 week history shortness of breath, cough, chills and hypoxia. #Sepsis / Pneumonia /acute hypoxic respiratory failure /coronavirus OC 43 Source of sepsis is pneumonia Met sepsis criteria Lactate improved from 3.3-2.8 after hydration Normal contact isolation precautions for coronavirus Empiric antibiotics covering for pneumonia with IV ceftriaxone + PO doxycycline Aim O2 sats greater than 90%. Asked the nurse to titrate O2 down. During my encounter, O2 was titrated down from 3 L to 2 L. Incentive spirometer, flutter valve Blood pressure has improved Leukocytosis resolved from 12,000 #Elevated troponin with history of pericardial effusion Most likely demand-ischemia without chest pain Technically difficult to read echocardiogram but no wall motion abnormality noted #COPD No significant wheezing when seen therefore defer regular nebulizers or steroids although this was after being given a nebulizer by the emergency room provider Continue routine maintenance inhalers\ #Sleep apnea Noted as diagnosis on chart although patient reports does not use CPAP at home VTE prophylaxis - Lovenox 40 mg subcu daily Diet - T2DM Disposition - admit to PCU Admission and Anticipated Discharge Date Admission Date: August 18, 2024 Subjective Patient was seen and examined at 11:30 AM. She says she feels better overall. Review of Systems Review of Systems: All systems reviewed & are unremarkable except as noted in Subjective Physical Exam Physical Exam: General: Awake, conversant Heart: S1, S2/regular rate and rhythm, no murmur rubs or gallops Lungs: Clear to auscultation bilaterally. Normal effort Abdomen: Soft/nontender/nondistended. No hepatosplenomegaly Extremities: No clubbing/cyanosis. No edema Behavior: Appropriate, cooperative Results & Data Results & Data Vital Signs (Past 12 Hours) Vital Signs Temp Pulse Resp BP Pulse Ox O2 Del Method O2 Flow Rate 08/20/24 09:49 Room Air 08/20/24 08:00 36.5 C 96 H 18 145/68 H 95 Nasal Cannula 08/20/24 05:24 Nasal Cannula 4 Laboratory Results Abnormal lab results 08/19/24 08/19/24 08/20/24 Range/Units 16:28 20:27 07:29 POC Glucose 134 H 169 H 127 H (70-99) mg/dl 08/20/24 Range/Units 11:35 POC Glucose 122 H (70-99) mg/dl PG Care Time/CCT Total # of Minutes Spent Total Time Spent with Patient: Total time spent is greater than 50% in coordination of care (as documented) at patient's floor/unit and/or counseling patient: Coding Level of Care Code 48057 SUB INP/OBS CARE MIN Diagnoses Coronavirus infection B34.2 Sinus tachycardia R00.0 Elevated troponin R79.89 Sepsis A41.9 Elevated lactic acid level R79.89 Cough R05.9 Acute respiratory failure with hypoxia J96.01
[2024-08-21] MEDS: PNEUMOCOCCAL VACCINE (PCV20) 20-VAL CONJ-DIP CRM/PF 0.5 ML SYR IM ONE (08:31)
--- NOTE | 2024-08-21 15:24 | Hospitalist Progress Note ---
Date of Service August 21, 2024 Assessment & Plan (1) Coronavirus infection: (2) Sinus tachycardia: (3) Elevated troponin: (4) Sepsis: (5) Elevated lactic acid level: (6) Cough: (7) Acute respiratory failure with hypoxia: Plan 78-year-old female presents to the ER with 1 week history shortness of breath, cough, chills and hypoxia. #Sepsis / Pneumonia /acute hypoxic respiratory failure /coronavirus OC 43 Source of sepsis is pneumonia Met sepsis criteria Lactate improved from 3.3-2.8 after hydration Normal contact isolation precautions for coronavirus Empiric antibiotics covering for pneumonia with IV ceftriaxone + PO doxycycline Oxygen needs down to 1 L Incentive spirometer, flutter valve Blood pressure has improved Leukocytosis resolved from 12,000 Ordered two-step test Switch from IV ceftriaxone to p.o. Augmentin. Continue p.o. doxycycline Likely discharge tomorrow #Elevated troponin with history of pericardial effusion Most likely demand-ischemia without chest pain Technically difficult to read echocardiogram but no wall motion abnormality noted #COPD No significant wheezing when seen therefore defer regular nebulizers or steroids although this was after being given a nebulizer by the emergency room provider Continue routine maintenance inhalers\ #Sleep apnea Noted as diagnosis on chart although patient reports does not use CPAP at home VTE prophylaxis - Lovenox 40 mg subcu daily Diet - T2DM Disposition - admit to PCU Admission and Anticipated Discharge Date Admission Date: August 18, 2024 Subjective Patient was seen and examined at 10:50 AM. She feels better overall. Review of Systems Review of Systems: All systems reviewed & are unremarkable except as noted in Subjective Physical Exam Physical Exam: General: Awake, conversant Heart: S1, S2/regular rate and rhythm, no murmur rubs or gallops Lungs: Clear to auscultation bilaterally. Normal effort Abdomen: Soft/nontender/nondistended. No hepatosplenomegaly Extremities: No clubbing/cyanosis. No edema Behavior: Appropriate, cooperative Results & Data Results & Data Vital Signs (Past 12 Hours) Vital Signs Temp Pulse Resp BP Pulse Ox O2 Del Method O2 Flow Rate 08/21/24 07:27 36.5 C 84 16 149/83 H 93 Nasal Cannula 2 08/21/24 07:25 Nasal Cannula 2 Laboratory Results Abnormal lab results 08/20/24 08/20/24 08/21/24 Range/Units 16:21 20:41 07:46 POC Glucose 168 H 133 H 125 H (70-99) mg/dl 08/21/24 Range/Units 11:35 POC Glucose 118 H (70-99) mg/dl PG Care Time/CCT Total # of Minutes Spent Total Time Spent with Patient: Total time spent is greater than 50% in coordination of care (as documented) at patient's floor/unit and/or counseling patient: Coding Level of Care Code 05284 SUB INP/OBS CARE 2/35MIN Diagnoses Coronavirus infection B34.2 Sinus tachycardia R00.0 Elevated troponin R79.89 Sepsis A41.9 Elevated lactic acid level R79.89 Cough R05.9 Acute respiratory failure with hypoxia J96.01
[2024-08-21] MEDS: AMOXICILLIN/CLAVULANATE 875 MG TAB PO SCH (16:52)
[2024-08-21 20:16] VITALS: O2SAT 94
[2024-08-22 07:12] VITALS: BP 141/85; PULSE 82; RESP 16; TEMP 98.4
--- NOTE | 2024-08-22 10:49 | Discharge Summary ---
Date of Service August 22, 2024 Admission HPI Per Admitting Provider Brynn Lan is a 78 year old female who presents to the ER with shortness of breath, cough, chills, fatigue, myalgias for the last week. She reports her symptoms progressively became worse over the last week. She went to express care earlier today and was noted to be hypoxic at 85 to 88% on room air and tachycardic therefore sent to the ER via EMS. She denies any chest pain, palpitations, presyncope, leg swelling or calf pain. No prior history of pulmonary embolism. Shortness of breath is worse on lying flat but she notes this is because of her chronic back pain. She is on room air at baseline and currently requiring 4 L/min O2 to maintain O2 sats greater than 90%. Admission Exam Per Admitting Provider Constitutional: WD/WN, vitals as above ENMT: Mouth: + dry oral mucous membranes Respiratory: + labored breathing and + uses accessory muscles Auscultation: + diminished lung sounds (bibasal), + crackles (Left basal) and + rhonchi (Right base); no wheezes Cardiovascular: Rate/Rhythm: regular rhythm and + tachycardic Heart Sounds: no murmur Extremities: normal capillary refill; no calf tenderness and no pedal edema Gastrointestinal (Abdomen): normal bowel sounds, soft, nontender, no hep atosplenomegaly Skin: no rashes, warm and dry Neurologic: moves all extremities and awake; not confused Psychiatric: A+Ox3, euthymic affect Principal Diagnosis Pneumonia, sepsis Acute hypoxic respiratory failure due to pneumonia Coronavirus infection Discharge Exam General: Awake, conversant Heart: S1, S2/regular rate and rhythm, no murmur rubs or gallops Lungs: Clear to auscultation bilaterally. Normal effort Abdomen: Soft/nontender/nondistended. No hepatosplenomegaly Extremities: No clubbing/cyanosis. No edema Behavior: Appropriate, cooperative Discharge Data Allergies Allergy/AdvReac Type Severity Reaction Status Date / Time benzoin Allergy Severe "ATE A Verified 08/18/24 10:00 HOLE IN MY SKIN" oxycodone [From OxyContin] Allergy Severe vomiting Verified 08/18/24 10:00 povidone-iodine Allergy Intermediate TOPICAL Verified 08/18/24 10:00 BETADINE-LARGE SKIN BLISTERS Iodinated Contrast Media Allergy Unknown IVP DYE Verified 08/18/24 10:00 Sulfa (Sulfonamide Allergy Unknown UNKNOWN Verified 08/18/24 10:00 Antibiotics) RXN, TAKES BACTRIM CHRONICALLY AT HOME bacitracin Allergy Unknown Verified 08/18/24 10:00 [From Triple Antibiotic] iodine Allergy Unknown Verified 08/18/24 10:00 neomycin Allergy Unknown Verified 08/18/24 10:00 [From Triple Antibiotic] polymyxin B Allergy Unknown Verified 08/18/24 10:00 [From Triple Antibiotic] lactose AdvReac Intermediate DIARRHEA Verified 08/18/24 10:00 AND 'GASSY' orange AdvReac Mild ORANGE Verified 08/18/24 10:00 JUICE-VOMITS Consultations 08/18/24 11:59 ED Decision to Admit Stat Ordered Studies Chest X-Ray 08/18/24 11:03 XR chest 1V portable CLINICAL HISTORY: cough COMPARISON STUDY: 11/04/2023 FINDINGS: Stable cardiomegaly without pulmonary vascular congestion. There is interval stranding opacity at the left base with partial obscuration of the diaphragm. No pleural effusion. IMPRESSION: Atelectasis versus early pneumonia left lung base. ACT 112: Negative or not required by law. Electronically signed by: Dougie Gallardo M.D. 08/18/2024 11:22 AM Hospital Course (1) Coronavirus infection: (2) Sinus tachycardia: (3) Elevated troponin: (4) Sepsis: (5) Elevated lactic acid level: (6) Cough: (7) Acute respiratory failure with hypoxia: Plan 78-year-old female presents to the ER with 1 week history shortness of breath, cough, chills and hypoxia. #Sepsis / Pneumonia /acute hypoxic respiratory failure /coronavirus OC 43 Source of sepsis is pneumonia Met sepsis criteria Lactate improved from 3.3-2.8 after hydration Normal contact isolation precautions for coronavirus Empiric antibiotics covering for pneumonia with IV ceftriaxone + PO doxycycline Oxygen needs down to 1 L Incentive spirometer, flutter valve Blood pressure has improved Leukocytosis resolved from 12,000 Two-step test completed. Patient is needing 1 L of oxygen at rest and 2 L upon exertion. Oxygen arranged for Switch from IV ceftriaxone to p.o. Augmentin. Continue p.o. doxycycline Discharge on p.o. Augmentin and doxycycline to complete the course #Elevated troponin with history of pericardial effusion Most likely demand-ischemia without chest pain Technically difficult to read echocardiogram but no wall motion abnormality noted #COPD No significant wheezing when seen therefore defer regular nebulizers or steroids although this was after being given a nebulizer by the emergency room provider Continue routine maintenance inhalers\\ #Sleep apnea Noted as diagnosis on chart although patient reports does not use CPAP at home VTE prophylaxis - Lovenox 40 mg subcu daily Diet - T2DM Disposition - admit to PCU Total Time Total Time Spent Total Time Spent (In Minutes): 35 Discharge Plan Discharge Items Patient Disposition: Home - Self-Care Reason For Visit: ACUTE HYPOXIC RESPIRATORY FAILORE, SEPSIS, PNEUMON Discharge Diagnosis: Pneumonia, sepsis Acute hypoxic respiratory failure due to pneumonia Coronavirus infection Condition on Discharge: Fair Activity: Resume your previous activity Non-emergency contact: Primary Care Provider Call non-emergency contact if: you have any medication questions and your symptoms worsen Follow-up/Referrals: Susana Herron MD [Primary Care Provider] - 08/29/24 10:20 am Diet: Carb Consistent or DM2 Addtl Attending Provider Instructions: - Advised to follow-up with PCP in 1 week - Advised to note that you are being discharged on O2. Pending Studies at Discharge: No Stand-Alone Forms: My [facility] Strut, Smoking Cessation Medications and DC Order Prescriptions: New doxycycline hyclate 100 mg Capsule 100 mg PO BID 3 Days Qty: 6 0RF amoxicillin-pot clavulanate 875-125 mg Tablet 1 tab PO BIDM 3 Days Qty: 6 0RF Continued albuterol sulfate [Ventolin HFA] 90 mcg/actuation HFA aerosol inhaler 1 inh INH Q6H PRN (Reason: shortness of breath or wheezing) Qty: 6.7 3RF miscellaneous medical supply Misc 1 ea miscellaneous .COMPLEX Qty: 1 0RF Rx Instructions: Portable Oxygen Concentrator 2L/min via NC- continuous use rosuvastatin 20 mg tablet 20 mg PO HS Qty: 90 3RF metformin 500 mg tablet 500 mg PO BID Qty: 200 3RF Patient Comments: only taking 1 in the morning esomeprazole magnesium 40 mg capsule,delayed release(DR/EC) 40 mg PO QAM Qty: 30 5RF alendronate 70 mg tablet 70 mg PO Q7D Qty: 12 2RF Rx Instructions: take 1 tablet by mouth every week on sat. Anoro Ellipta 62.5-25 mcg/actuation blister with device 1 inh inhalation QAM Qty: 60 3RF fluticasone propionate 50 mcg/actuation spray,suspension 2 spray intranasal QAM Qty: 16 2RF Rx Instructions: instill 2 sprays into each nostril daily calcium carbonate [Calcium 600] 600 mg calcium (1,500 mg) Tablet 600 mg PO QAM cholecalciferol (vitamin D3) [Vitamin D3] 50 mcg (2,000 unit) Capsule 50 mcg PO QAM amlodipine 10 mg tablet 10 mg PO QAM ferrous sulfate [Iron (ferrous sulfate)] 325 mg (65 mg iron) tablet 325 mg PO QAM lisinopril 40 mg tablet 40 mg PO QAM montelukast 10 mg tablet 10 mg PO QAM oxycodone-acetaminophen 5-325 mg tablet 1.5 tab PO Q4H MDD 8 tablets/day PRN (Reason: pain) Patient Comments: taking every 4 hours aspirin 81 mg Tablet,Delayed Release (Dr/Ec) 81 mg PO QAM coenzyme Q10 [CoQ-10] 100 mg Capsule 300 mg PO HS diclofenac sodium 1 % Gel 2 g TOPICAL QID PRN (Reason: Pain) Rx Instructions: Apply to affected area. Discharge Orders: Discharge Order (Routine); Ordered 08/22/24 Ordered By: Sebastian Medel/Other Patient Handouts: Preventing Pneumonia Admission Data Admit Date/Time: 08/18/24 12:59 Attending Provider: Sebastian Brooke Admit Provider: Moragn Martínez Primary Care Provider: Susana Herron Other Providers: Morgan Martínez; [facility] Other Interventions: Discharge Summary Assessment (RN) Last Done: 08/22/24 10:50
== END 2024-08-22 12:55 | disposition home or self-care (01) | DRG 871 ==
LOC: ED 10:39 → SUATTDRO 12:59 → PACUINP 12:59 → 2S 14:51 → 3E 08-20 22:50